=== PATIENT | female | born 1935 | race Caucasian/White ===

== ENCOUNTER 2016-07-21 05:59 | Emergency (ER) | payer MEDICARE ==
[2016-07-21] MEDS ORDERED: NS 0.9% 1000 ML* 1,000 ML IV ONE (06:13)
--- NOTE | 2016-07-21 06:29 | ED ---
Tobi Rosas Rebecca, scribed for Royce Villeda MD on 07/21/16 at 0621 . Complex/Multi-Sys Presentation - HPI Summary HPI Summary: Pt is an 81 y/o F who presents to ED c/o diarrhea. Diarrhea began suddenly 2 days ago and has been intermittent since onset. Sx aggravated by food, alleviated by nothing. Pt tried eating toast last night and at 0400 this morning she woke up, incontinent of stool. PMHx DM. Has not had insulin for 2 days due to decreased oral intake. Glucose has been running below 100. Called her PCP who stated, per pt, that sx are likely attributed to "the bug going around." - History Of Current Complaint Chief Complaint: EDNauseaVomitDiarrh Time Seen by Provider: 07/21/16 06:13 Hx Obtained From: Patient Onset/Duration: Sudden Onset, Lasting Days - 2 days Timing: Intermittent, Lasting: Severity Currently: None Aggravating Factor(s): Food Alleviating Factor(s): Nothing Associated Signs And Symptoms: Positive: Diarrhea, Other - Stool incontinent - Allergies/Home Medications Allergies/Adverse Reactions: Allergies Allergy/AdvReac Type Severity Reaction Status Date / Time Penicillins [PCN] Allergy Intermediate Airway Verified 03/09/16 14:26 Obstruction Sulfamethoxazole Allergy Intermediate Rash Verified 03/09/16 14:26 w/Trimethoprim [From Bactrim] Ciprofloxacin AdvReac Severe TENDON TEAR Verified 03/09/16 14:26 Omeprazole AdvReac Severe Abdominal Verified 03/09/16 14:26 Pain Quinapril [From Accupril] AdvReac Severe Coughing Verified 03/09/16 14:26 MACROLIDES Allergy Severe GI Uncoded 03/09/16 14:26 PMH/Surg Hx/FS Hx/Imm Hx Endocrine/Hematology History: Reports: Hx Diabetes Cardiovascular History: Reports: Hx Congenital Heart Disease, Hx Congestive Heart Failure - 2016, Hx Hypertension, Hx Pacemaker/ICD - BIVANTRICULATOR MAR 31 2016 Denies: Hx Atrial Fibrillation Respiratory History: Denies: Hx Asthma GI History: Reports: Hx Gastroesophageal Reflux Disease History: Reports: Hx Renal Disease - transplant Musculoskeletal History: Denies: Hx Osteoporosis Sensory History: Reports: Hx Cataracts Denies: Hx Hearing Aid Opthamlomology History: Reports: Hx Cataracts Psychiatric History: Denies: Hx Panic Disorder - Cancer History Cancer Type, Location and Year: SQUAMOUS CELL CA (REMOVED) - Surgical History Surgery Procedure, Year, and Place: HYSTERECTMY; LSP LAMINECTOMY; RIGHT RENAL TRANSPLANT; BILAT CATARACT SURGERY; SQUAMOUS CELL REMOVAL Hx Anesthesia Reactions: No Infectious Disease History: No Infectious Disease History: Denies: History Other Infectious Disease, Traveled Outside the [place] in Last 30 Days - Family History Known Family History: Positive: Cardiac Disease - CAD to sister Family History: no reported cardio vascular issues reported - Social History Alcohol Use: Occasionally Substance Use Type: Reports: None Hx Tobacco Use: Yes Smoking Status (MU): Former Smoker Type: Cigarettes Length of Time of Smoking/Using Tobacco: 15 years Have You Smoked in the Last Year: No Review of Systems Positive: Diarrhea Positive: incontinence - Stool All Other Systems Reviewed And Are Negative: Yes Physical Exam Triage Information Reviewed: Yes Vital Signs On Initial Exam: Initial Vitals Temp Pulse Resp BP Pulse Ox 97.2 F 83 18 161/76 96 07/21/16 06:06 07/21/16 06:06 07/21/16 06:06 07/21/16 06:06 07/21/16 06:06 Vital Signs Reviewed: Yes Appearance: Positive: No Pain Distress, Thin Skin: Positive: Warm Head/Face: Positive: Normal Head/Face Inspection Eyes: Positive: KENTRELL ENT: Positive: Hearing grossly normal Neck: Positive: Supple Respiratory/Lung Sounds: Positive: Clear to Auscultation, Breath Sounds Present Cardiovascular: Positive: RRR Abdomen Description: Positive: Nontender, Soft Bowel Sounds: Positive: Present Musculoskeletal: Positive: Strength/ROM Intact Neurological: Positive: Sensory/Motor Intact, Alert, Oriented to Person Place, Time Psychiatric: Positive: Normal Diagnostics - Vital Signs Vital Signs Temp Pulse Resp BP Pulse Ox 07/21/16 06:06 97.2 F 83 18 161/76 96 - Laboratory Result Diagrams: 07/21/16 06:35 07/21/16 06:35 Lab Statement: Any lab studies that have been ordered have been reviewed, and results considered in the medical decision making process. Complex Multi-Symp Course/Dx Assessment/Plan: Pt is an 81 y/o F with a CC of diarrhea intermittently for 2 days. At 0400 she woke up, incontinent of stool. Pt will be signed out to Dr. Delgado. - Diagnoses Provider Diagnoses: Gastroenteritis Discharge - Discharge Plan Condition: Good Disposition: HOME Discharge Disposition Comment: Signed out to Dr. Delgado, pending dispo Patient Education Materials: Gastroenteritis (ED) Referrals: Anselmo Smith MD [Primary Care Provider] - 2 Days The documentation as recorded by the Tobi mckeon Rebecca accurately reflects the service I personally performed and the decisions made by me, Royce Villeda MD.
[2016-07-21 06:52] LABS: Hematocrit 42 % (35-47); Hemoglobin 13.7 g/dl (12.0-16.0); Mean Corpuscular HGB Conc 33 g/dl (31-36); Mean Corpuscular Hemoglobin 30 pg (27-31); Mean Corpuscular Volume 92 fL (80-97); Mean Platelet Volume 10 um3 (7.4-10.4); Red Blood Count 4.57 10^6/ul (4.0-5.4); Red Cell Distribution Width 17 % (10.5-15); White Blood Count 3.4 10^3/ul (3.5-10.8)
[2016-07-21 07:03] LABS: Comments Flag Yes
[2016-07-21 07:04] LABS: Add Diff/Slide Review? Slide Review Added
[2016-07-21 07:24] LABS: ALT 21 U/L (7-52); AST 38 U/L (13-39); Albumin 3.7 g/dL (3.2-5.2); Alkaline Phosphatase 62 U/L (34-104); Anion Gap 6 mmol/L (2-11); BUN/Creatinine Ratio 22.1 (8-20); Blood Urea Nitrogen 21 mg/dL (6-24); C Reactive Protein < 1.00 mg/L (< 5.00); CO2 Carbon Dioxide 26 mmol/L (22-32); Chloride 105 mmol/L (101-111); EGFR African American 72.4 (>60); EGFR Non-African American 56.3 (>60); Globulin 3.5 g/dL (2-4); Glucose 124 mg/dL (70-100); Magnesium 1.9 mg/dL (1.9-2.7); Potassium 3.8 mmol/L (3.5-5.0); Sodium 137 mmol/L (133-145); Total Protein 7.2 g/dL (6.4-8.9)
[2016-07-21 12:42] VITALS: BP 145/84
[2016-07-21] MEDS ORDERED: Loperamide CAP* 2 MG ONE ×2 (12:46→12:50)
--- NOTE | 2016-07-21 12:58 | CONSULT ---
Consult Consult: Ms Borjas presented to the ED C/O a few days of watery diarrhea. She was concerned because yesterday it seemed to be andrenia away and this AM it was back.. She was on an antibiotic in June for bronchitis. Her stool was negative for blood, WBC's and C.Diff. and She felt better after some IV fluids. I will treat her symptomatically as an outpatient and discharge her in stable condition with a diagnosos of diarrhea.
[2016-07-21] MEDS ORDERED: Loperamide CAP* 2 MG PO ONE (13:01)
== END 2016-07-21 12:40 | disposition home or self-care (01) ==
LOC: ED 05:59
DX: K52.9 Noninfective gastroenteritis and colitis, unspecified (principal); R19.7 Diarrhea, unspecified; Z87.891 Personal history of nicotine dependence
CPT/HCPCS: 36415; 80053; 82272; 83630; 83735; 85025; 86140; 87045; 87046; 87493; 87899; 99282; A9270-GY

== ENCOUNTER 2016-08-22 13:24 | Emergency (ER) | payer MEDICARE ==
[2016-08-22] MEDS ORDERED: Aspirin Low Dose CHEW TAB* 81 MG PO ONE (14:17)
[2016-08-22 14:46] LABS: Hematocrit 39 % (35-47); Hemoglobin 12.7 g/dl (12.0-16.0); Mean Corpuscular HGB Conc 33 g/dl (31-36); Mean Corpuscular Hemoglobin 30 pg (27-31); Mean Corpuscular Volume 91 fL (80-97); Mean Platelet Volume 9 um3 (7.4-10.4); Red Blood Count 4.25 10^6/ul (4.0-5.4); Red Cell Distribution Width 16 % (10.5-15); White Blood Count 7.5 10^3/ul (3.5-10.8)
[2016-08-22 15:04] LABS: Albumin 3.7 g/dL (3.2-5.2); BUN/Creatinine Ratio 26.3 (8-20); Calcium 9.5 mg/dL (8.6-10.3); EGFR African American 69.1 (>60); EGFR Non-African American 53.7 (>60); Globulin 3.4 g/dL (2-4); Potassium 4.1 mmol/L (3.5-5.0); Total Bilirubin 0.9 mg/dL (0.2-1.0); Total Protein 7.1 g/dL (6.4-8.9)
[2016-08-22 15:32] LABS: Troponin I 0.04 ng/mL (<0.04)
--- NOTE | 2016-08-22 15:50 | RAD ---
Indication: Chest pain. Single frontal view of the chest performed at 1439 hours was reviewed. Comparison is made with previous exam dated March 09, 2016. Cardiomegaly is noted. There is an enlarged right atrium noted. Pacemaker leads are in place. Lung gilman appear hyperinflated with no definite pneumonia. IMPRESSION: CARDIAC PACEMAKER WITH ENLARGED RIGHT ATRIUM. NO ACTIVE CARDIOPULMONARY DISEASE IS NOTED.
[2016-08-22] MEDS ORDERED: Iodixanol* (CONTRAST) 320 MG/ML 100 ML SDV IV ONE (17:09)
--- NOTE | 2016-08-22 18:07 | RAD ---
Indication: Positive d-dimer, shortness of breath. Contrast: Administered 64.1 ml of VISAPAQUE 320 mgi/ml CTA of the chest was performed on IV contrast administration. Coronal and sagittal reconstructed images were obtained. The pulmonary arterial tree is well opacified. There are no filling defects to suggest pulmonary embolus. There is no mediastinal or hilar adenopathy noted. The heart is enlarged. There may be a small pericardial effusion. The trachea and major bronchi appear patent. Bilateral pleural effusions. Interstitial edema consistent with CHF is noted. The visualized abdominal organs demonstrates atrophic kidneys bilaterally. Atherosclerosis of the splenic artery is noted. IMPRESSION: NO EVIDENCE OF PULMONARY EMBOLUS IS NOTED. CARDIOMEGALY WITH SMALL PERICARDIAL EFFUSION IS NOTED. BILATERAL PLEURAL EFFUSIONS WITH LIKELY VASCULAR CONGESTION.
[2016-08-22 18:48] VITALS: BP 138/72
--- NOTE | 2016-08-23 09:33 | ED ---
Leanne Rosas Michael, scribed for Rolando Delgado MD on 08/22/16 at 1412 . HPI Chest Pain - HPI Summary HPI Summary: 81 y/o female comes to the ED presenting with sharp chest pain located in the mid sternal. The chest pain started one day ago. The pt reports that the chest pain started intermittently and worsened this morning. Throughout the day the pain occurred in intermittent episodes, and upon exertion, the sharp pain became constant. Currently at the ED, the pt states the chest pain is slightly alleviated with laying down and the . While laying down, the chest pain is still present, but it is described as pressure. The pt denies all other symptoms. The PMHx is significant for AL. - History of Current Complaint Chief Complaint: EDChestPainROMI Time Seen by Provider: 08/22/16 13:58 Hx Obtained From: Patient, Medical Records Onset/Duration: Started Days Ago, Still Present, Worse Since - this morning Timing: Constant, Intermittent Initial Severity: Moderate Current Severity: Mild Pain Intensity: 3 Pain Scale Used: 0-10 Numeric Chest Pain Location: Mid Sternal Chest Pain Radiates: No Character: Pressure/Squeezing, Sharp/Stabbing Aggravating Factor(s): Exertion Alleviating Factor(s): Position - laying down Associated Signs and Symptoms: Positive: Chest Pain - Allergy/Home Medications Allergies/Adverse Reactions: Allergies Allergy/AdvReac Type Severity Reaction Status Date / Time Penicillins [PCN] Allergy Intermediate Airway Verified 08/23/16 08:17 Obstruction Sulfamethoxazole Allergy Intermediate Rash Verified 08/22/16 13:27 w/Trimethoprim [From Bactrim] Ciprofloxacin AdvReac Severe TENDON TEAR Verified 08/22/16 13:27 Omeprazole AdvReac Severe Abdominal Verified 08/22/16 13:27 Pain Quinapril [From Accupril] AdvReac Severe Coughing Verified 08/22/16 13:27 MACROLIDES Allergy Severe GI Uncoded 08/22/16 13:27 PMH/Surg Hx/FS Hx/Imm Hx Endocrine/Hematology History: Reports: Hx Diabetes Cardiovascular History: Reports: Hx Congenital Heart Disease, Hx Congestive Heart Failure - 2016, Hx Hypertension, Hx Myocardial Infarction, Hx Pacemaker/ ICD - BIVANTRICULATOR MAR 31 2016 Denies: Hx Atrial Fibrillation Respiratory History: Denies: Hx Asthma GI History: Reports: Hx Gastroesophageal Reflux Disease History: Reports: Hx Renal Disease - transplant Musculoskeletal History: Denies: Hx Osteoporosis Sensory History: Reports: Hx Cataracts Denies: Hx Hearing Aid Opthamlomology History: Reports: Hx Cataracts Psychiatric History: Denies: Hx Panic Disorder - Cancer History Cancer Type, Location and Year: SQUAMOUS CELL CA (REMOVED) - Surgical History Surgery Procedure, Year, and Place: HYSTERECTMY; LSP LAMINECTOMY; RIGHT RENAL TRANSPLANT; BILAT CATARACT SURGERY; SQUAMOUS CELL REMOVAL Hx Anesthesia Reactions: No Infectious Disease History: No Infectious Disease History: Denies: History Other Infectious Disease, Traveled Outside the [place] in Last 30 Days - Family History Known Family History: Positive: Cardiac Disease - CAD to sister Family History: no reported cardio vascular issues reported - Social History Occupation: Retired Lives: With Family Alcohol Use: Occasionally Substance Use Type: Reports: None Hx Tobacco Use: Yes Smoking Status (MU): Former Smoker Type: Cigarettes Length of Time of Smoking/Using Tobacco: 15 years Have You Smoked in the Last Year: No Review of Systems Negative: Fever Positive: Chest Pain All Other Systems Reviewed And Are Negative: Yes Physical Exam Triage Information Reviewed: Yes Vital Signs On Initial Exam: Initial Vitals Temp Pulse Resp BP Pulse Ox 96.5 F 87 18 157/84 93 08/22/16 13:27 08/22/16 13:27 08/22/16 13:27 08/22/16 13:27 08/22/16 13:27 Vital Signs Reviewed: Yes Appearance: Positive: Well-Appearing, No Pain Distress, Well-Nourished Skin: Positive: Warm, Skin Color Reflects Adequate Perfusion, Dry Head/Face: Positive: Normal Head/Face Inspection Eyes: Positive: Normal ENT: Positive: Normal ENT inspection Neck: Positive: Supple, Nontender Respiratory/Lung Sounds: Positive: Clear to Auscultation, Breath Sounds Present Cardiovascular: Positive: RRR, S1 - split Abdomen Description: Positive: Nontender, Soft Bowel Sounds: Positive: Present Musculoskeletal: Positive: Normal Neurological: Positive: Normal Psychiatric: Positive: Affect/Mood Appropriate Diagnostics - Vital Signs Vital Signs Temp Pulse Resp BP Pulse Ox 08/22/16 13:27 96.5 F 87 18 157/84 93 - Laboratory Lab Results: Lab Results 08/22/16 08/22/16 08/22/16 Range/Units 14:30 14:30 14:30 WBC 7.5 (3.5-10.8) 10^3/ul RBC 4.25 (4.0-5.4) 10^6/ul Hgb 12.7 (12.0-16.0) g/dl Hct 39 (35-47) % MCV 91 (80-97) fL MCH 30 (27-31) pg MCHC 33 (31-36) g/dl RDW 16 H (10.5-15) % Plt Count 153 (150-450) 10^3/ul MPV 9 (7.4-10.4) um3 Neut % (Auto) 78.4 (38-83) % Lymph % (Auto) 12.5 L (25-47) % [place] % (Auto) 7.1 (1-9) % Eos % (Auto) 1.2 (0-6) % Baso % (Auto) 0.8 (0-2) % Absolute Neuts (auto) 5.9 (1.5-7.7) 10^3/ul Absolute Lymphs (auto) 0.9 L (1.0-4.8) 10^3/ul Absolute Monos (auto) 0.5 (0-0.8) 10^3/ul Absolute Eos (auto) 0.1 (0-0.6) 10^3/ul Absolute Basos (auto) 0.1 (0-0.2) 10^3/ul Absolute Nucleated RBC 0 10^3/ul Nucleated RBC % 0 D-Dimer, Quantitative (Less Than 230) ng/mL Sodium 138 (133-145) mmol/L Potassium 4.1 (3.5-5.0) mmol/L Chloride 100 L (101-111) mmol/L Carbon Dioxide 30 (22-32) mmol/L Anion Gap 8 (2-11) mmol/L BUN 26 H (6-24) mg/dL Creatinine 0.99 H (0.51-0.95) mg/dL Est GFR ( Amer) 69.1 (>60) Est GFR (Non-Af Amer) 53.7 (>60) BUN/Creatinine Ratio 26.3 H (8-20) Glucose 225 H (70-100) mg/dL Lactic Acid 0.9 (0.5-2.0) mmol/L Calcium 9.5 (8.6-10.3) mg/dL Total Bilirubin 0.90 (0.2-1.0) mg/dL AST 56 H (13-39) U/L ALT 23 (7-52) U/L Alkaline Phosphatase 71 (34-104) U/L Troponin I 0.04 H* (<0.04) ng/mL Total Protein 7.1 (6.4-8.9) g/dL Albumin 3.7 (3.2-5.2) g/dL Globulin 3.4 (2-4) g/dL Albumin/Globulin Ratio 1.1 (1-3) 08/22/16 08/22/16 Range/Units 14:30 17:20 WBC (3.5-10.8) 10^3/ul RBC (4.0-5.4) 10^6/ul Hgb (12.0-16.0) g/dl Hct (35-47) % MCV (80-97) fL MCH (27-31) pg MCHC (31-36) g/dl RDW (10.5-15) % Plt Count (150-450) 10^3/ul MPV (7.4-10.4) um3 Neut % (Auto) (38-83) % Lymph % (Auto) (25-47) % [place] % (Auto) (1-9) % Eos % (Auto) (0-6) % Baso % (Auto) (0-2) % Absolute Neuts (auto) (1.5-7.7) 10^3/ul Absolute Lymphs (auto) (1.0-4.8) 10^3/ul Absolute Monos (auto) (0-0.8) 10^3/ul Absolute Eos (auto) (0-0.6) 10^3/ul Absolute Basos (auto) (0-0.2) 10^3/ul Absolute Nucleated RBC 10^3/ul Nucleated RBC % D-Dimer, Quantitative 853 H (Less Than 230) ng/mL Sodium (133-145) mmol/L Potassium (3.5-5.0) mmol/L Chloride (101-111) mmol/L Carbon Dioxide (22-32) mmol/L Anion Gap (2-11) mmol/L BUN (6-24) mg/dL Creatinine (0.51-0.95) mg/dL Est GFR ( Amer) (>60) Est GFR (Non-Af Amer) (>60) BUN/Creatinine Ratio (8-20) Glucose (70-100) mg/dL Lactic Acid (0.5-2.0) mmol/L Calcium (8.6-10.3) mg/dL Total Bilirubin (0.2-1.0) mg/dL AST (13-39) U/L ALT (7-52) U/L Alkaline Phosphatase (34-104) U/L Troponin I 0.05 H* (<0.04) ng/mL Total Protein (6.4-8.9) g/dL Albumin (3.2-5.2) g/dL Globulin (2-4) g/dL Albumin/Globulin Ratio (1-3) Result Diagrams: 08/22/16 14:30 08/22/16 14:30 Lab Statement: Any lab studies that have been ordered have been reviewed, and results considered in the medical decision making process. - Radiology CXR Xray Interpretation: Positive (See Comments) - CARDIAC PACEMAKER WITH ENLARGED RIGHT ATRIUM. NO ACTIVE CARDIOPULMONARY DISEASE IS NOTED. Radiology Interpretation Completed By: Radiologist - CT CTA Chest CT Interpretation: Positive (See Comments) - NO EVIDENCE OF PULMONARY EMBOLUS IS NOTED. CARDIOMEGALY WITH SMALL PERICARDIAL EFFUSION IS NOTED. BILATERAL PLEURAL EFFUSIONS WITH LIKELY VASCULAR CONGESTION. CT Interpretation Completed By: Radiologist - EKG EK EKG Rhythm: Sinus Rhythm - 87 bpm EKG Interpretation: introlateral st wave changes EKG Comparison: No Significant Change - from EKG on 04/24/12 Chest Pain Course/Dx - Course Course Of Treatment: Ms. Borjas has an atypical pain and significant risk factors. Her EDACS score was 12 - 18 as the pain was intermittently reproducible (she has difficulty with direct answers). She had two troponins thet were low indeterminant which is what she normally runs. Her d-dimer was quite elevated and a CT showed no PE. I recommended close F/U. - Diagnoses Provider Diagnoses: Chest wall pain Discharge - Discharge Plan Condition: Stable Disposition: HOME Patient Education Materials: Chest Wall Pain (ED) Referrals: Anselmo Smith MD [Primary Care Provider] - Additional Instructions: Please follow up with Dr. Smith on Sal 3/20/17. The documentation as recorded by the scribeLeanne Michael accurately reflects the service I personally performed and the decisions made by me, Rolando Delgado MD.
== END 2016-08-22 18:47 | disposition home or self-care (01) ==
LOC: ED 13:24
DX: R07.89 Other chest pain (principal); Z87.891 Personal history of nicotine dependence
CPT/HCPCS: 36415; 71010; 71275; 80053; 83605; 84484; 85025; 85379; 93005; 99283; Q9967

== ENCOUNTER 2016-09-14 10:24 | Emergency (ER) | payer MEDICARE ==
[2016-09-14 11:24] VITALS: BP 136/67
--- NOTE | 2016-09-14 12:38 | UC ---
Respiratory Complaint HPI - HPI Summary HPI Summary: Cough, elevated temperature ("my normal is 97.2, and I take it every day because of the transplant, and this week it has been as high as 99"), mucus production, fatigue starting about a week ago. Was rx [id number] in late august due to achiness and feeling of fullness behind her ears and into her neck, but wasn' t coughing or blowing nose at that time. - History of Current Complaint Chief Complaint: UCGeneralIllness Stated Complaint: COUGH, CHEST CONGEST Time Seen by Provider: 09/14/16 12:12 Hx Obtained From: Patient ?: No Onset/Duration: Gradual Onset, Lasting Days Timing: Constant Severity Initially: Mild Severity Currently: Moderate Character: Cough: Productive Aggravating Factors: Deep Breaths, Recumbent Position Alleviating Factors: Upright Position Associated Signs And Symptoms: Positive: Chills, URI, Nasal Congestion. Negative: Wheezing - Allergies/Home Medications Allergies/Adverse Reactions: Allergies Allergy/AdvReac Type Severity Reaction Status Date / Time Penicillins [PCN] Allergy Intermediate Airway Verified 08/23/16 08:17 Obstruction Sulfamethoxazole Allergy Intermediate Rash Verified 08/22/16 13:27 w/Trimethoprim [From Bactrim] Ciprofloxacin AdvReac Severe TENDON TEAR Verified 08/22/16 13:27 Omeprazole AdvReac Severe Abdominal Verified 08/22/16 13:27 Pain Quinapril [From Accupril] AdvReac Severe Coughing Verified 08/22/16 13:27 MACROLIDES Allergy Severe GI Uncoded 08/22/16 13:27 Home Medications: Home Medications Muir's Brand Tussin 0.5 teasp 09/14/16 [History] PMH/Surg Hx/FS Hx/Imm Hx Endocrine History Of: Reports: Diabetes Cardiovascular History Of: Reports: Cardiac Disorders - HEART FAILURE, Hypertension, Pacemaker/ICD - BIVANTRICULATOR MAR 31 2016, Myocardial Infarction , Congestive Heart Failure - 2016 Respiratory History Of: Reports: Bronchitis Denies: Asthma GI/ History Of: Reports: Renal Disease - transplant Cancer History Of: Denies: Breast Cancer - Surgical History Surgical History: Yes Surgery Procedure, Year, and Place: HYSTERECTMY; LSP LAMINECTOMY; RIGHT RENAL TRANSPLANT; BILAT CATARACT SURGERY; SQUAMOUS CELL REMOVAL - Family History Known Family History: Positive: Cardiac Disease - CAD to sister Family History: no reported cardio vascular issues reported - Social History Alcohol Use: Occasionally Substance Use Type: None Smoking Status (MU): Former Smoker Type: Cigarettes Length of Time of Smoking/Using Tobacco: 15 years Have You Smoked in the Last Year: No Review of Systems Constitutional: Fever, Chills, Fatigue Skin: Negative Eyes: Negative ENT: Nasal Discharge Respiratory: Cough Cardiovascular: Negative Gastrointestinal: Negative Genitourinary: Negative Motor: Negative Neurovascular: Negative Musculoskeletal: Negative Neurological: Negative Psychological: Negative All Other Systems Reviewed And Are Negative: Yes Physical Exam Triage Information Reviewed: Yes Appearance: Well-Appearing, No Pain Distress, Well-Nourished Vital Signs: Initial Vital Signs Temp 100.3 F 09/14/16 11:17 Pulse 83 09/14/16 11:17 Resp 18 09/14/16 11:17 BP 136/67 09/14/16 11:17 Pulse Ox 100 09/14/16 11:17 Vital Signs Reviewed: Yes Eye Exam: Normal Eyes: Positive: Conjunctiva Clear ENT: Positive: Hearing grossly normal, Pharynx normal, Nasal congestion, TMs normal. Negative: Tonsillar swelling, Tonsillar exudate Neck exam: Normal Neck: Positive: Supple, Nontender, No Lymphadenopathy Respiratory Exam: Other - frequent productive cough Respiratory: Positive: No respiratory distress, Rhonchi - clear with cough. Negative: Wheezing Cardiovascular Exam: Normal Cardiovascular: Positive: RRR, No Murmur Musculoskeletal Exam: Normal Musculoskeletal: Positive: ROM Intact Neurological Exam: Normal Neurological: Positive: Alert, Muscle Tone Normal Psychological Exam: Normal Skin Exam: Normal UC Diagnostic Evaluation - Laboratory O2 Sat by Pulse Oximetry: 100 Respiratory Course/Dx - Course Course Of Treatment: flu swab negative, CXR read as no acute changes - Differential Dx/Diagnosis Provider Diagnoses: acute bronchitis Discharge - Discharge Plan Condition: Stable Disposition: HOME Prescriptions: DOXYcycline CAP(*) [DOXYcycline 100MG CAP(*)] 100 mg PO BID #14 cap Patient Education Materials: Acute Bronchitis (ED) Referrals: Anselmo Smith MD [Primary Care Provider] - 3 Days Additional Instructions: As we discussed, this antibiotic is mainly intended to prevent bacterial complications. As it is very likely that your symptoms are caused by a virus, you will probably continue to have a productive cough for at least another week or two. Call or return if you develop increasing fever, shortness of breath, chest pain , bloody sputum, or otherwise worsen. If you have not improved at all after several days, contact your primary care physician or return here.
--- NOTE | 2016-09-14 13:01 | RAD ---
INDICATION: Cough, fever. Kidney transplant. History of CHF. COMPARISON: August 22, 2016 CT. TECHNIQUE: Dual energy PA and routine lateral views of the chest were obtained. REPORT: LEFT larger than RIGHT small dependent pleural effusions with associated basilar atelectasis. Negative for pneumothorax. Cardiomegaly. RIGHT atrial, RIGHT ventricular, and coronary sinus level pacemaker leads. Pacemaker device partially obscures the LEFT mid to upper lung zone on the PA view. Unremarkable central pulmonary vasculature and mediastinal contours. IMPRESSION: Cardiomegaly and small pleural effusions. No compelling evidence for alveolar or interstitial pulmonary edema. Mild bibasilar atelectasis proportional to the pleural effusions. No compelling evidence for pneumonia.
== END 2016-09-14 13:25 | disposition home or self-care (01) ==
LOC: UCEAST 10:24
DX: J20.9 Acute bronchitis, unspecified (principal); E11.9 Type 2 diabetes mellitus without complications; I10 Essential (primary) hypertension; I25.2 Old myocardial infarction; Z95.0 Presence of cardiac pacemaker; I50.9 Heart failure, unspecified; Z88.1 Allergy status to other antibiotic agents; Z88.0 Allergy status to penicillin; Z88.2 Allergy status to sulfonamides; Z88.8 Allergy status to other drugs, medicaments and biological substances; Z94.0 Kidney transplant status
CPT/HCPCS: 71020; 87502; 99212; G0463

== ENCOUNTER 2017-07-14 16:56 | Emergency (ER) | payer MEDICARE ==
--- OUTSIDE RECORDS SUMMARY | 2017-07-14 17:10 | XMS REPORT ---
:1935 External Reference #:[id number] Author Organization [facility] Address [address] [place] [address] Phone [phone] Care Team Providers Name Role Phone Anselmo Smith M.D. Primary Care Physician Unavailable Payers Type Date Identification Numbers Payment Provider Subscriber Commercial Policy Number: [id number] BS [employer] Taina Bhargavi [employer] Group Number: [id number] [address] [address] PayID: [id number] [place] [address] Problems Date Description Provider Status Onset: Type 1 diabetes mellitus Active Onset: Essential hypertension Active Onset: Arthritis Active Onset: 10/24/2014 Corneal edema Christie Henry O.D. Active Onset: 10/24/2014 Band-shaped keratopathy Christie Henry O.D. Active Onset: 10/24/2014 Ocular hypertension Christie Henry O.D. Active Onset: 06/26/2015 Vitreous degeneration Christie Henry O.D. Active Onset: 06/26/2015 Presence of intraocular lens Christie Henry O.D. Active Onset: 06/26/2015 Hypermetropia Christie Henry O.D. Active Onset: 06/26/2015 Regular astigmatism Christie Henry O.D. Active Onset: 06/26/2015 Myopia Christie Henry O.D. Active Onset: 06/26/2015 Presbyopia Christie Henry O.D. Active Onset: 01/01/2016 Round hole of retina without Christie Vini Henry O.D. Active detachment Onset: Heart failure Active Onset: Decreased cardiac ejection fraction Active Onset: 03/16/2016 Vitreous hemorrhage Christie Cordero O.D. Active Onset: Congestive heart failure Active Onset: 05/27/2017 Glaucoma Christie Cordero O.D. Active Onset: 06/02/2017 Hemorrhage of iris AND/OR ciliary body Christie Cordero O.D. 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 every day Refresh Liquigel 10/23 Active Solution 1% 1 drop both C. Oltz, eyes as O.D. needed Avi 128 10/23 Active Ointment 5% Dorota - both C. Oltz, eyes O.D. every night Prednisone Active Tablets 2.5mg Unknown 0000 Azathioprine Active Tablets 50mg Unknown /0000 Humalog Active Solution 100Unit/M Unknown /0000 L Lantus Active Solution 100Unit/M Unknown /0000 L Vitamin D Active Capsules 1000Unit 1 tab Unknown (Cholecalciferol) po daily Centrum Silver Active Chewtabs Unknown /0000 Lasix Active Tablets 20mg Unknown /0000 Avi 128 Active Solution 5% 15ml Drops - Rey 1 drop Zablocki, both M.D. eyes twice daily Azithromycin Active Tablets 250mg Unknown Simbrinza 06/01 Hx Suspension 1-0.2% 1 drop left - eye 3 06/28 times day Tobradex 02/28 Hx Ointment 0.3-0.1% 3.500 place H18.423 gm 0.5 Vini Henry, - inch O.D. 04/13 in left eye at night for 2 weeks Aspirin Low Dose 06/25 Hx Tablets 81mg 1 by mouth Vini Henry, - every O.D. 02/27 day Prednisolone Acetate 10/23 Hx Suspension 1% 90 1 both eyes Vini Henry, - every O.D. Avi 128 10/23 Hx Solution 5% both eyes Vini Henry, - four O.D. 11/04 times day Hydrochlorothiazide 00/00 Hx Capsules 12.5mg Unknown /06/17 Ramipril 00/00 Hx Capsules 10mg Unknown / - 11/04 Fish Oil-Flax Hx Capsules Unknown Oil-Borage Oil /02/27 Centrum Silver 00/00 Hx Chewtabs Unknown / - 06/25 Vitamin D3 00/00 Hx Capsules 1000Unit Unknown 06/25 Lasix 00/00 Hx Tablets 20mg every Unknown / other - day 12/01 Metoprolol Succinate 00/00 Hx Tablets ER 1/2 Of Unknown ER /0000 24HR 25mg - 11/04 Zantac 00/00 Hx Tablets 150mg Unknown / - 11/04 Torsemide 00/00 Hx Tablets 10mg Unknown / - 02/27 Lisinopril 00/00 Hx Tablets 10mg Unknown / - 02/27 Carvedilol 00/00 Hx Tablets 3.125mg Unknown / - 02/27 Aspirin 00/[address] 81mg every Unknown /0000 other - day 08/05 Furosemide 00/00 Hx Tablets 20mg Unknown / - 08/05 Valsartan 00/00 Hx Tablets 80mg Unknown / - 04/13 Metoprolol Succinate 00/00 Hx Tablets ER 25mg Unknown ER /0000 24HR - 08/05 Lasix Hx Tablets 20mg 1 tab Unknown /0000 po - daily 06/01 Ramipril Hx Capsules 5mg 1 tab Unknown /0000 po - daily 05/26 Acetazolamide Hx Tablets 125mg 1 Unknown /0000 tablet - twice 06/16 Results Description No Information Procedures Date CPT Code Description Status 06/02/2017 46807 Est Patient Intermediate Exam Completed 04/27/2017 92728 Determination Of Refractive State Completed 02/03/2017 86773 Est Patient Comprehensive Exam Completed 11/10/2016 00923 Est Patient Intermediate Exam Completed 08/21/2016 07970 Determination Of Refractive State Completed 08/21/2016 84726 Est Patient Intermediate Exam Completed 02/29/2016 50571 Est Patient Intermediate Exam Completed 01/01/2016 06921 Est Patient Intermediate Exam Completed 11/06/2015 11481 Est Patient Intermediate Exam Completed 06/26/2015 13249 Determination Of Refractive State Completed 06/26/2015 63791 Est Patient Comprehensive Exam Completed 10/24/2014 52360 Pachymetry Completed 10/24/2014 82031 Est Patient Intermediate Exam Completed 06/26/2014 38420 Scanning Computerized Opthalmic Diagnostic Posterior Completed Seg Retina 06/26/2014 08012 Est Patient Comprehensive Exam Completed 05/21/2014 80855 Est Patient Intermediate Exam Completed 03/21/2014 02549 Est Patient Intermediate Exam Completed 10/25/2013 56886 Est Patient Intermediate Exam Completed 10/18/2013 86841 Contact Lens For Treatment Of Ocular Surface Disease Completed 10/18/2013 19869 Est Patient Intermediate Exam Completed 10/04/2013 53452 Est Patient Intermediate Exam Completed 06/27/2013 77461 Est Patient Comprehensive Exam Completed 12/26/2012 73004 Est Patient Comprehensive Exam Completed 12/26/2012 56480 Scanning Computerized Opthalmic Diagnostic Posterior Completed Seg Retina 11/29/2012 18924 Determination Of Refractive State Completed 10/14/2012 36019 Est Patient Intermediate Exam Completed 09/13/2012 64035 Est Patient Intermediate Exam Completed 06/23/2012 13490 Fundus Photography With Interpretation And Report Completed 06/23/2012 15680 Est Patient Intermediate Exam Completed 06/23/2012 525 Dry Eye Therapy Kits Completed 05/25/2012 525 Recheck Completed 12/22/2011 67102 Scanning Computerized Opthalmic Diagnostic Posterior Completed Seg Retina 12/22/2011 45770 Determination Of Refractive State Completed 12/22/2011 90845 Est Patient Comprehensive Exam Completed 06/23/2011 87113 Est Patient Intermediate Exam Completed 06/23/2011 15361 Determination Of Refractive State Completed 05/20/2011 38669 Remove Foreign Body Cornea W/Slit Lamp Completed 12/18/2010 87495 Est Patient Intermediate Exam Completed 12/18/2010 516 Cod Liver Oil Tablets Completed 08/14/2010 02009 Est Patient Intermediate Exam Completed 06/19/2010 86789 Scanning Computerized Opthalmic Diagnostic Posterior Completed Seg Retina 06/19/2010 82665 Est Patient Intermediate Exam Completed 01/21/2010 11312 Determination Of Refractive State Completed 01/21/2010 52728 Est Patient Comprehensive Exam Completed 10/24/2009 78140 Est Patient Intermediate Exam Completed 09/24/2009 77850 Est Patient Intermediate Exam Completed 09/24/2009 99837 Scanning Laser W/Interp And Report Completed 03/26/2009 52388 Scanning Laser W/Interp And Report Completed 03/26/2009 45894 Determination Of Refractive State Completed 03/26/2009 84735 Est Patient Comprehensive Exam Completed 12/15/2008 56276 Est Patient Intermediate Exam Completed 09/18/2008 04392 Est Patient Intermediate Exam Completed 05/21/2008 31981 Recheck Completed 03/19/2008 68646 Scanning Laser W/Interp And Report Completed 03/19/2008 09206 Determination Of Refractive State Completed 03/19/2008 10151 Est Patient Comprehensive Exam Completed 09/14/2007 516 Cod Liver Oil Tablets Completed 09/14/2007 38023 Est Patient Intermediate Exam Completed 09/14/2007 34484 Fundus Photography With Interpretation And Report Completed 03/15/2007 27068 Scanning Laser W/Interp And Report Completed 03/15/2007 54091 Est Patient Intermediate Exam Completed 01/31/2007 92527 Est Patient Intermediate Exam Completed 01/07/2007 50449 Est Patient Intermediate Exam Completed 08/20/2006 21459 Determination Of Refractive State Completed 08/20/2006 77332 Est Patient Comprehensive Exam Completed 06/18/2006 87126 Est Patient Intermediate Exam Completed 11/09/2005 16793 Est Patient Intermediate Exam Completed 04/20/2005 76463 Est Patient Intermediate Exam Completed 04/17/2005 46588 Rescheduled Appointment Completed 04/02/2005 96516 Determination Of Refractive State Completed 04/02/2005 09961 Est Patient Comprehensive Exam Completed 12/25/2004 38694 Rescheduled Appointment Completed 12/19/2004 17332 Rescheduled Appointment Completed 09/16/2004 13798 Est Patient Intermediate Exam Completed 06/20/2004 87482 Fundus Photography With Interpretation And Report Completed 06/20/2004 69842 Est Patient Comprehensive Exam Completed 05/23/2004 87188 Est Patient Intermediate Exam Completed 05/13/2004 03416 Close Lacrimal Punctum, Plug Completed 05/09/2004 01938 Est Patient Intermediate Exam Completed 05/05/2004 75258 Close Lacrimal Punctum, Plug Completed 05/05/2004 69200 Est Patient Intermediate Exam Completed 04/16/2004 06612 Est Patient Comprehensive Exam Completed 04/16/2004 36001 Close Lacrimal Punctum, Plug Completed 11/06/2003 42754 Fundus Photography With Interpretation And Report Completed 11/06/2003 81749 Est Patient Intermediate Exam Completed 10/25/2003 90836 Patient No Show For Appt Completed 10/24/2003 86565 Rescheduled Appointment Completed 10/09/2003 42300 Est Patient Intermediate Exam Completed 10/02/2003 07454 Patient No Show For Appt Completed 09/24/2003 32215 Est Patient Intermediate Exam Completed Encounters Type Date Location Provider CPT E/M Dx Office Visit 06/17/2017 2:45p Yadiel Olea MD, Rey Barrow, 26098 H21.02 [place] H40.052 Office Visit 06/15/2017 2:30p Yadiel Olea MD, Rey Barrow M.D. 09456 H21.02 pc H40.052 H18.20 Office Visit 05/27/2017 1:15p Yadiel Olea MD, Christie Cordero O.D. 08574 H40.89 pc Office Visit 04/14/2016 10:15a Yadiel Olea MD, Christie Cordero O.D. 07365 H18.423 pc Office Visit 03/16/2016 2:45p Yadiel Olea MD, Christie Cordero O.D. 51932 H43.11 pc H18.423 Office Visit 02/21/2014 2:00p Yadiel Olea MD, Dena Aguilera.Iris 04853 371.20 pc Office Visit 12/26/2013 10:15a Yadiel Olea MD, Dena Aguilera.DJimmy 95270 371.20 pc 371.43 Office Visit 11/15/2013 1:45p Yadiel Olea MD, Dena Aguilera.DJimmy 94818 371.20 pc Office Visit 11/29/2012 10:00a Yadiel Olea MD, Dena Aguilera.Iris 34437 371.43 pc Office Visit 10/29/2012 10:45a Yadiel Olea MD, Dena Aguilera.Iris 56559 371.43 pc Office Visit 10/21/2012 2:30p Yadiel Olea MD, Dena Aguilera.Iris 33430 371.43 pc Office Visit 05/22/2011 2:20p Yadiel Olea MD, Lakeisha Sellers, 42143 375.15 pc O.D. Office Visit 10/23/2010 11:15a Yadiel Olea MD, Dena Aguilera.Iris 29117 370.20 pc Office Visit 10/01/2010 9:30a Yadiel Olea MD, Dena Aguilera.Iris 78918 371.42 pc Office Visit 09/27/2010 9:15a Yadiel Olea MD, Dena Aguilera.Iris 86241 371.42 pc Office Visit 09/26/2010 10:15a Yadiel Olea MD, Dena Aguilera.DJimmy 57697 371.42 pc Office Visit 09/24/2010 10:00a Yadiel Olea MD, Dena Aguilera.Iris 42639 371.42 pc Office Visit 08/20/2010 9:30a Yadiel Olea MD, Dena Aguilera.Iris 81772 370.20 pc Office Visit 04/20/2009 10:15a Yadiel Olea MD, Rolando Correa Bridget 25877 375.15 pc O.D. Office Visit 02/07/2009 3:00p Yadiel Olea MD, Dena Aguilera.Iris 44634 370.00 pc Office Visit 01/24/2009 10:15a Yadiel Olea MD, Dena Aguilera.DJimmy 65265 370.00 pc Office Visit 01/18/2009 2:15p Yadiel Olea MD, Dena Aguilera.Iris 45984 370.00 pc Office Visit 01/10/2009 10:30a Yadiel Olea MD, Christie Henry O.D. 60326 370.00 pc Office Visit 01/03/2009 11:15a Yadiel Olea MD, Yadiel Olea M.D. 56348 370.00 pc Office Visit 01/01/2009 3:15p Yadiel Olea MD, Yadiel Olea M.D. 02944 370.00 pc Office Visit 12/31/2008 10:30a Yadiel Olea MD, Yadiel Olea M.D. 03881 370.00 pc Office Visit 12/29/2008 1:15p Yadiel Olea MD, Christie Henry O.D. 11066 370.00 pc Office Visit 12/24/2008 1:45p Yadiel Olea MD, Christie Henry O.D. 17698 053.9 pc Office Visit 12/20/2008 9:45a Yadiel Olea MD, Dena Aguilera.Iris 39253 053.9 pc Office Visit 12/18/2008 3:30p Yadiel Olea MD, Christie Henry O.D. 96073 053.9 pc Office Visit 12/17/2008 3:30p Yadiel Olea MD, Christie Henry O.D. 84794 053.9 pc Office Visit 01/14/2007 3:10p Yadiel Olea MD, Lakeisha Sellers, 79093 370.20 pc O.D. Office Visit 09/01/2005 12:00p Yadeil Olea MD, Yadiel Olea M.D. 49720 368.40 pc Office Visit 06/12/2005 10:00a Yadiel Olea MD, Yadiel Olea M.D. 16386 370.20 pc Office Visit 06/05/2005 10:20a Yadiel Olea MD, Lakeisha Sellers, 84383 370.20 pc O.D. Office Visit 05/29/2005 12:30p Yadiel Olea MD, Yadiel Olea M.D. 77996 370.20 pc Office Visit 12/31/2004 10:30a Yadiel Olea MD, Yadiel Olea M.D. 17391 375.15 pc Office Visit 06/02/2004 10:30a Yadiel Olea MD, Lakeisha Sellers, 49720 370.20 pc O.D. Office Visit 08/31/2003 10:00a Yadiel Olea MD, Yadiel Olea M.D. 05366 370.20 pc Plan of Care 2017 - Rey Barrow M.D.H40.052 Ocular hypertension, left eyeComments :Smoking can increase the risk of developing or worsening any eye related disease, as well as affect your overall health. If you are a smoker, we strongly recommend that you quit.If you are not a smoker, we strongly recommend that you do not start. You have Ocular Hypertension in your left eye. Thismeans that your eye pressure is higher than average, but you have not been diagnosed with Glaucoma.Follow up:3 Month Follow Up IOP TZBETQ99.423 Band keratopathy, bilateralComments:TRY STOPPING THE STEROID EYE DROPS TO SEE IF THE EYES FEEL ANY DIFFERENT OFF OF THEM
--- OUTSIDE RECORDS SUMMARY | 2017-07-14 17:10 | XMS REPORT ---
:1935 External Reference #:[id number] Author Organization [facility] Address [address] [place] [address] Phone [phone] Care Team Providers Name Role Phone Anselmo Smith M.D. Primary Care Physician Unavailable Payers Type Date Identification Numbers Payment Provider Subscriber Commercial Policy Number: [id number] BS CNY Taina Bhargavi [employer] Group Number: [id number] [address] [address] PayID: [id number] [place] [address] Problems Date Description Provider Status Onset: Type [...] Form Strength Qnty SIG Indications Ordering Provider Simbrinza 06/01 Active Suspension 1-0.2% 1 drop left eye 3 times a day Prednisolone Acetate 10/15 Active Suspension 1% 15ml 1 drop Christie Sotomayor both Gil, eyes O.D. every day Refresh Liquigel 10/23 Active Solution 1% 1 drop both C. Oltz, eyes as O.D. needed Avi 128 10/23 Active Ointment 5% Dorota - both C. Oltz, eyes O.D. every night Prednisone Active Tablets 2.5mg Unknown / Azathioprine Active Tablets 50mg Unknown / Humalog Active Solution 100Unit/M Unknown /0000 L Lantus Active Solution 100Unit/M Unknown /0000 L Vitamin D Active Capsules 1000Unit 1 tab Unknown (Cholecalciferol) po daily Centrum Silver Active Chewtabs Unknown / Lasix Active Tablets 20mg Unknown / Avi 128 Active Solution 5% 15ml Drops - Rey 1 drop Zablocki, both M.D. eyes twice daily Tobradex 02/28 Hx Ointment 0.3-0.1% 3.[address] place H18.423 gm 0.5 Vini Henry, - inch O.D. 04/13 in left eye at night for 2 weeks Aspirin Low Dose 06/25 Hx Tablets 81mg 1 by mouth Vini Henry, - every O.D. 02/27 day Prednisolone Acetate 10/23 Hx Suspension 1% 1 both eyes Vini Henry, - every O.D. Avi 128 10/23 Hx Solution 5% both eyes Vini Henry, - four O.D. 11/04 times day Hydrochlorothiazide /00 Hx Capsules 12.5mg Unknown / - 06/17 Ramipril /00 Hx Capsules 10mg Unknown / - 11/04 Fish Oil-Flax Hx Capsules Unknown Oil-Borage Oil / - 02/27 Centrum Silver 00/00 Hx Chewtabs Unknown / - 06/25 Vitamin D3 00/00 Hx Capsules 1000Unit Unknown / - 06/25 Lasix 00/00 Hx Tablets 20mg every Unknown /0000 other - day 12/01 Metoprolol Succinate 00/00 [...] Unknown ER /0000 24HR - 08/05 Lasix 00/00 Hx Tablets 20mg 1 tab Unknown /0000 po - daily 06/01 Ramipril Hx Capsules 5mg 1 tab Unknown / po - daily 05/26 Acetazolamide Hx Tablets 125mg 1 Unknown tablet - twice 06/16 Results Description No Information Procedures Date CPT Code Description Status 06/02/2017 27080 Est Patient Intermediate Exam Completed 04/27/2017 93688 Determination Of Refractive State Completed 02/03/2017 91594 Est Patient Comprehensive Exam Completed 11/10/2016 71281 Est Patient Intermediate Exam Completed 08/21/2016 27619 Determination Of Refractive State Completed 08/21/2016 07399 Est Patient Intermediate Exam Completed 02/29/2016 13524 Est Patient Intermediate Exam Completed 01/01/2016 54634 Est Patient Intermediate Exam Completed 11/06/2015 22443 Est Patient Intermediate Exam Completed 06/26/2015 57678 Determination Of Refractive State Completed 06/26/2015 19008 Est Patient Comprehensive Exam Completed 10/24/2014 48994 Pachymetry Completed 10/24/2014 55404 Est Patient Intermediate Exam Completed 06/26/2014 34670 Scanning Computerized Opthalmic Diagnostic Posterior Completed Seg Retina 06/26/2014 35590 Est Patient Comprehensive Exam Completed 05/21/2014 90201 Est Patient Intermediate Exam Completed 03/21/2014 21475 Est Patient Intermediate Exam Completed 10/25/2013 04490 Est Patient Intermediate Exam Completed 10/18/2013 59560 Contact Lens For Treatment Of Ocular Surface Disease Completed 10/18/2013 08387 Est Patient Intermediate Exam Completed 10/04/2013 87221 Est Patient Intermediate Exam Completed 06/27/2013 08301 Est Patient Comprehensive Exam Completed 12/26/2012 87697 Est Patient Comprehensive Exam Completed 12/26/2012 90774 Scanning Computerized Opthalmic Diagnostic Posterior Completed Seg Retina 11/29/2012 68382 Determination Of Refractive State Completed 10/14/2012 66967 Est Patient Intermediate Exam Completed 09/13/2012 89624 Est Patient Intermediate Exam Completed 06/23/2012 91003 Fundus Photography With Interpretation And Report Completed 06/23/2012 62220 Est Patient Intermediate Exam Completed 06/23/2012 525 Dry Eye Therapy Kits Completed 05/25/2012 525 Recheck Completed 12/22/2011 69299 Scanning Computerized Opthalmic Diagnostic Posterior Completed Seg Retina 12/22/2011 81121 Determination Of Refractive State Completed 12/22/2011 99084 Est Patient Comprehensive Exam Completed 06/23/2011 48557 Est Patient Intermediate Exam Completed 06/23/2011 69146 Determination Of Refractive State Completed 05/20/2011 81612 Remove Foreign Body Cornea W/Slit Lamp Completed 12/18/2010 17494 Est Patient Intermediate Exam Completed 12/18/2010 516 Cod Liver Oil Tablets Completed 08/14/2010 50248 Est Patient Intermediate Exam Completed 06/19/2010 51921 Scanning Computerized Opthalmic Diagnostic Posterior Completed Seg Retina 06/19/2010 87090 Est Patient Intermediate Exam Completed 01/21/2010 02688 Determination Of Refractive State Completed 01/21/2010 62622 Est Patient Comprehensive Exam Completed 10/24/2009 16217 Est Patient Intermediate Exam Completed 09/24/2009 94104 Est Patient Intermediate Exam Completed 09/24/2009 21375 Scanning Laser W/Interp And Report Completed 03/26/2009 19167 Scanning Laser W/Interp And Report Completed 03/26/2009 23727 Determination Of Refractive State Completed 03/26/2009 52846 Est Patient Comprehensive Exam Completed 12/15/2008 66768 Est Patient Intermediate Exam Completed 09/18/2008 64663 Est Patient Intermediate Exam Completed 05/21/2008 78242 Recheck Completed 03/19/2008 82979 Scanning Laser W/Interp And Report Completed 03/19/2008 70477 Determination Of Refractive State Completed 03/19/2008 73799 Est Patient Comprehensive Exam Completed 09/14/2007 516 Cod Liver Oil Tablets Completed 09/14/2007 09827 Est Patient Intermediate Exam Completed 09/14/2007 08031 Fundus Photography With Interpretation And Report Completed 03/15/2007 89142 Scanning Laser W/Interp And Report Completed 03/15/2007 28736 Est Patient Intermediate Exam Completed 01/31/2007 65465 Est Patient Intermediate Exam Completed 01/07/2007 52592 Est Patient Intermediate Exam Completed 08/20/2006 85537 Determination Of Refractive State Completed 08/20/2006 61304 Est Patient Comprehensive Exam Completed 06/18/2006 52141 Est Patient Intermediate Exam Completed 11/09/2005 27767 Est Patient Intermediate Exam Completed 04/20/2005 03112 Est Patient Intermediate Exam Completed 04/17/2005 51857 Rescheduled Appointment Completed 04/02/2005 49056 Determination Of Refractive State Completed 04/02/2005 14051 Est Patient Comprehensive Exam Completed 12/25/2004 04844 Rescheduled Appointment Completed 12/19/2004 54352 Rescheduled Appointment Completed 09/16/2004 89547 Est Patient Intermediate Exam Completed 06/20/2004 19515 Fundus Photography With Interpretation And Report Completed 06/20/2004 47852 Est Patient Comprehensive Exam Completed 05/23/2004 11982 Est Patient Intermediate Exam Completed 05/13/2004 16891 Close Lacrimal Punctum, Plug Completed 05/09/2004 77940 Est Patient Intermediate Exam Completed 05/05/2004 32367 Close Lacrimal Punctum, Plug Completed 05/05/2004 19376 Est Patient Intermediate Exam Completed 04/16/2004 64683 Est Patient Comprehensive Exam Completed 04/16/2004 03938 Close Lacrimal Punctum, Plug Completed 11/06/2003 18033 Fundus Photography With Interpretation And Report Completed 11/06/2003 88886 Est Patient Intermediate Exam Completed 10/25/2003 48843 Patient No Show For Appt Completed 10/24/2003 87633 Rescheduled Appointment Completed 10/09/2003 04030 Est Patient Intermediate Exam Completed 10/02/2003 13057 Patient No Show For Appt Completed 09/24/2003 77832 Est Patient Intermediate Exam Completed Encounters Type Date Location Provider CPT E/M Dx Office Visit 06/17/2017 2:45p Yadiel Olea MD, Rey Barrow, 39783 H21.02 [place] H40.052 Office Visit 06/15/2017 2:30p Yadiel Olea MD, Rey Barrow M.D. 95191 H21.02 pc H40.052 H18.20 Office Visit 05/27/2017 1:15p Yadiel Olea MD, Christie Cordero O.D. 77413 H40.89 pc Office Visit 04/14/2016 10:15a Yadiel Olea MD, Christie Cordero O.D. 27540 H18.423 pc Office Visit 03/16/2016 2:45p Yadiel Olea MD, Christie Cordero O.D. 81689 H43.11 pc H18.423 Office Visit 02/21/2014 2:00p Yadiel Olea MD, Christie Henry O.DJimmy 79967 371.20 pc Office Visit 12/26/2013 10:15a Yadiel Olea MD, Christie Henry O.DJimmy 79518 371.20 pc 371.43 Office Visit 11/15/2013 1:45p Yadiel Olea MD, Christie Henry O.DJimmy 56284 371.20 pc Office Visit 11/29/2012 10:00a Yadiel Olea MD, Christie Henry O.DJimmy 91936 371.43 pc Office Visit 10/29/2012 10:45a Yadiel Olea MD, Christie Henry O.DJimmy 85345 371.43 pc Office Visit 10/21/2012 2:30p Yadiel Olea MD, Christie Henry O.DJimmy 26619 371.43 pc Office Visit 05/22/2011 2:20p Yadiel Olea MD, Lakeisha Sellers, 67581 375.15 pc O.D. Office Visit 10/23/2010 11:15a Yadiel Olea MD, Christie Henry O.DJimmy 58677 370.20 pc Office Visit 10/01/2010 9:30a Yadiel Olea MD, Dena Aguilera.Iris 42198 371.42 pc Office Visit 09/27/2010 9:15a Yadiel Olea MD, Dena Aguilera.Iris 30792 371.42 pc Office Visit 09/26/2010 10:15a Yadiel Olea MD, Christie Henry O.DJimmy 11593 371.42 pc Office Visit 09/24/2010 10:00a Yadiel Olea MD, Christie Henry O.DJimmy 47372 371.42 pc Office Visit 08/20/2010 9:30a Yadiel Olea MD, Christie Henry O.DJimmy 78463 370.20 pc Office Visit 04/20/2009 10:15a Yadiel Olea MD, Rolando Correa 96438 375.15 pc O.D. Office Visit 02/07/2009 3:00p Yadiel Olea MD, Christie Henry O.D. 09350 370.00 pc Office Visit 01/24/2009 10:15a Yadiel Olea MD, Christie Henry O.D. 93005 370.00 pc Office Visit 01/18/2009 2:15p Yadiel Olea MD, Christie Henry O.D. 74620 370.00 pc Office Visit 01/10/2009 10:30a Yadiel Olea MD, Christie Henry O.D. 53684 370.00 pc Office Visit 01/03/2009 11:15a Yadiel Olea MD, Yadiel Olea M.D. 96120 370.00 pc Office Visit 01/01/2009 3:15p Yadiel Olea MD, Yadiel Olea M.D. 96849 370.00 pc Office Visit 12/31/2008 10:30a Yadiel Olea MD, Yadiel Olea M.D. 12765 370.00 pc Office Visit 12/29/2008 1:15p Yadiel Olea MD, Christie Henry O.D. 42663 370.00 pc Office Visit 12/24/2008 1:45p Yadiel Olea MD, Christie Henry O.D. 39644 053.9 pc Office Visit 12/20/2008 9:45a Yadiel Olea MD, Dena Aguilera.Iris 43371 053.9 pc Office Visit 12/18/2008 3:30p Yadiel Olea MD, Christie Henry O.D. 61723 053.9 pc Office Visit 12/17/2008 3:30p Yadiel Olea MD, Dena Aguilera.Iris 75937 053.9 pc Office Visit 01/14/2007 3:10p Yadiel Olea MD, Lakeisha Sellers 80117 370.20 pc O.D. Office Visit 09/01/2005 12:00p Yadiel Olea MD, Yadiel Olea M.D. 99647 368.40 pc Office Visit 06/12/2005 10:00a Yadiel Olea MD, Yadiel Olea M.D. 30044 370.20 pc Office Visit 06/05/2005 10:20a Yadiel Olea MD, Lakeisha Sellers, 14131 370.20 pc O.D. Office Visit 05/29/2005 12:30p Yadiel Olea MD, Yadiel Olea M.D. 35005 370.20 pc Office Visit 12/31/2004 10:30a Yadiel Olea MD, Yadiel Olea M.D. 35696 375.15 pc Office Visit 06/02/2004 10:30a Yadiel Olea MD, Lakeisha Sellers, 88533 370.20 pc O.D. Office Visit 08/31/2003 10:00a Yadiel Olea MD, Yadiel Olea M.D. 76079 370.20 Plan of Care Future Appointment(s):07/01/2017 2:30 pm - Rey Barrow M.D. at Yadiel Olea MD, 06/17/2017 - Rey Barrow M.D.H21.02 Hyphema, left eyeComments :Smoking can increase the risk of developing or worsening any eye related disease, as well as affect your overall health. If you are a smoker, we strongly recommend that you quit.If you are not a smoker, we strongly recommend that you do not start. STOP THE SIMBRINZA 2 DAYS BEFORE THE NEXT [id number] Ocular hypertension, left eye
--- OUTSIDE RECORDS SUMMARY | 2017-07-14 17:11 | XMS REPORT ---
:1935 External Reference #:[id number] Author Organization [facility] [employer] Address [address] [place] [address] Phone [phone] Care Team Providers Name Role Phone Anselmo Smith M.D. Primary Care Physician Unavailable Payers Type Date Identification Numbers Payment Provider Subscriber Commercial Policy Number: [id number] BS CN[employer] Taina Bhargavi Borjas Group Number: [id number] [address] [address] PayID: [id number] [place] [address] Problems Date Description Provider Status Onset: Type [...] 1000Unit 1 tab Unknown (Cholecalciferol) po daily Acetazolamide Active Tablets 125mg 1 tablet twice daily Centrum Silver Active Chewtabs Lasix Active Tablets 20mg Avi 128 Active Solution 5% 15ml Drops - 1 drop Zablocki, left M.D. eye 4 times daily / right eye 2 times daily Tobradex 02/28 Hx Ointment 0.3-0.1% 3.500 place H18.423 gm 0.5 Vini Henry, - inch O.D. 04/13 in left eye at night for 2 weeks Aspirin Low Dose 06/25 Hx Tablets 81mg 1 by mouth Vini Henry, - every O.D. 02/27 day Prednisolone Acetate 10/23 Hx Suspension 1% both eyes Vini Henry, - every O.D. Avi 128 10/23 Hx Solution 5% both eyes Vini Henry, - four O.D. 11/04 times day Hydrochlorothiazide / Hx Capsules 12.5mg Unknown - 06/17 Ramipril Hx Capsules 10mg Unknown / - 11/04 Fish Oil-Flax Hx Capsules Unknown Oil-Borage Oil /02/27 Centrum Silver /00 Hx Chewtabs Unknown / - 06/25 Vitamin D3 Hx Capsules 1000Unit Unknown 06/25 Lasix 00/00 [...] 02/27 Carvedilol 00/00 Hx Tablets 3.125mg Unknown /02/27 Aspirin 00/[address] 81mg every [...] tab Unknown /0000 po - daily 05/26 Results Description No Information Procedures Date CPT Code Description Status 06/02/2017 92384 Est Patient Intermediate Exam Completed 04/27/2017 10721 Determination Of Refractive State Completed 02/03/2017 57901 Est Patient Comprehensive Exam Completed 11/10/2016 55769 Est Patient Intermediate Exam Completed 08/21/2016 30292 Determination Of Refractive State Completed 08/21/2016 95230 Est Patient Intermediate Exam Completed 02/29/2016 00638 Est Patient Intermediate Exam Completed 01/01/2016 65468 Est Patient Intermediate Exam Completed 11/06/2015 42599 Est Patient Intermediate Exam Completed 06/26/2015 76506 Determination Of Refractive State Completed 06/26/2015 99419 Est Patient Comprehensive Exam Completed 10/24/2014 89590 Pachymetry Completed 10/24/2014 30533 Est Patient Intermediate Exam Completed 06/26/2014 00874 Scanning Computerized Opthalmic Diagnostic Posterior Completed Seg Retina 06/26/2014 66380 Est Patient Comprehensive Exam Completed 05/21/2014 57241 Est Patient Intermediate Exam Completed 03/21/2014 15474 Est Patient Intermediate Exam Completed 10/25/2013 28957 Est Patient Intermediate Exam Completed 10/18/2013 05296 Contact Lens For Treatment Of Ocular Surface Disease Completed 10/18/2013 14942 Est Patient Intermediate Exam Completed 10/04/2013 66731 Est Patient Intermediate Exam Completed 06/27/2013 93659 Est Patient Comprehensive Exam Completed 12/26/2012 29851 Est Patient Comprehensive Exam Completed 12/26/2012 93276 Scanning Computerized Opthalmic Diagnostic Posterior Completed Seg Retina 11/29/2012 00519 Determination Of Refractive State Completed 10/14/2012 66620 Est Patient Intermediate Exam Completed 09/13/2012 17902 Est Patient Intermediate Exam Completed 06/23/2012 48828 Fundus Photography With Interpretation And Report Completed 06/23/2012 20579 Est Patient Intermediate Exam Completed 06/23/2012 525 Dry Eye Therapy Kits Completed 05/25/2012 525 Recheck Completed 12/22/2011 18003 Scanning Computerized Opthalmic Diagnostic Posterior Completed Seg Retina 12/22/2011 86146 Determination Of Refractive State Completed 12/22/2011 50127 Est Patient Comprehensive Exam Completed 06/23/2011 63856 Est Patient Intermediate Exam Completed 06/23/2011 31542 Determination Of Refractive State Completed 05/20/2011 42486 Remove Foreign Body Cornea W/Slit Lamp Completed 12/18/2010 63817 Est Patient Intermediate Exam Completed 12/18/2010 516 Cod Liver Oil Tablets Completed 08/14/2010 78895 Est Patient Intermediate Exam Completed 06/19/2010 79385 Scanning Computerized Opthalmic Diagnostic Posterior Completed Seg Retina 06/19/2010 16916 Est Patient Intermediate Exam Completed 01/21/2010 26201 Determination Of Refractive State Completed 01/21/2010 09385 Est Patient Comprehensive Exam Completed 10/24/2009 59934 Est Patient Intermediate Exam Completed 09/24/2009 85084 Est Patient Intermediate Exam Completed 09/24/2009 89879 Scanning Laser W/Interp And Report Completed 03/26/2009 38040 Scanning Laser W/Interp And Report Completed 03/26/2009 43317 Determination Of Refractive State Completed 03/26/2009 46060 Est Patient Comprehensive Exam Completed 12/15/2008 57970 Est Patient Intermediate Exam Completed 09/18/2008 50758 Est Patient Intermediate Exam Completed 05/21/2008 16794 Recheck Completed 03/19/2008 31651 Scanning Laser W/Interp And Report Completed 03/19/2008 82559 Determination Of Refractive State Completed 03/19/2008 45607 Est Patient Comprehensive Exam Completed 09/14/2007 516 Cod Liver Oil Tablets Completed 09/14/2007 39959 Est Patient Intermediate Exam Completed 09/14/2007 34572 Fundus Photography With Interpretation And Report Completed 03/15/2007 66768 Scanning Laser W/Interp And Report Completed 03/15/2007 14866 Est Patient Intermediate Exam Completed 01/31/2007 72862 Est Patient Intermediate Exam Completed 01/07/2007 46503 Est Patient Intermediate Exam Completed 08/20/2006 74864 Determination Of Refractive State Completed 08/20/2006 83668 Est Patient Comprehensive Exam Completed 06/18/2006 74667 Est Patient Intermediate Exam Completed 11/09/2005 83585 Est Patient Intermediate Exam Completed 04/20/2005 92422 Est Patient Intermediate Exam Completed 04/17/2005 64087 Rescheduled Appointment Completed 04/02/2005 43525 Determination Of Refractive State Completed 04/02/2005 59487 Est Patient Comprehensive Exam Completed 12/25/2004 99630 Rescheduled Appointment Completed 12/19/2004 35757 Rescheduled Appointment Completed 09/16/2004 12439 Est Patient Intermediate Exam Completed 06/20/2004 81653 Fundus Photography With Interpretation And Report Completed 06/20/2004 16837 Est Patient Comprehensive Exam Completed 05/23/2004 53721 Est Patient Intermediate Exam Completed 05/13/2004 81539 Close Lacrimal Punctum, Plug Completed 05/09/2004 37497 Est Patient Intermediate Exam Completed 05/05/2004 23944 Close Lacrimal Punctum, Plug Completed 05/05/2004 62511 Est Patient Intermediate Exam Completed 04/16/2004 16407 Est Patient Comprehensive Exam Completed 04/16/2004 11462 Close Lacrimal Punctum, Plug Completed 11/06/2003 53208 Fundus Photography With Interpretation And Report Completed 11/06/2003 36364 Est Patient Intermediate Exam Completed 10/25/2003 49338 Patient No Show For Appt Completed 10/24/2003 77042 Rescheduled Appointment Completed 10/09/2003 19292 Est Patient Intermediate Exam Completed 10/02/2003 02007 Patient No Show For Appt Completed 09/24/2003 54257 Est Patient Intermediate Exam Completed Encounters Type Date Location Provider CPT E/M Dx Office Visit 05/27/2017 Yadiel Olea MD, Christie Cordero O.D. 15669 H40.89 1:15p pc Office Visit 04/14/2016 Yadiel Olea MD, Christie Cordero O.D. 87583 H18.423 10:15a pc Office Visit 03/16/2016 Yadiel Olea MD, Christie Cordero O.D. 34267 H43.11 2:45p pc H18.423 Office Visit 02/21/2014 2:00p Yadiel Olea MD, Christie Henry O.D. 24685 371.20 pc Office Visit 12/26/2013 10:15a Yadiel Olea MD, Christie Henry O.D. 16401 371.20 pc 371.43 Office Visit 11/15/2013 1:45p Yadiel Olea MD, Christie Henry O.DJimmy 74523 371.20 pc Office Visit 11/29/2012 10:00a Yadiel Olea MD, Dena Aguilera.DJimmy 52267 371.43 pc Office Visit 10/29/2012 10:45a Yadiel Olea MD, Christie Henry O.DJimmy 07206 371.43 pc Office Visit 10/21/2012 2:30p Yadiel Olea MD, Dena Aguilera.DJimmy 72671 371.43 pc Office Visit 05/22/2011 2:20p Yadiel Olea MD, Lakeisha Sellers, 25448 375.15 pc O.D. Office Visit 10/23/2010 11:15a Yadiel Olea MD, Dena Aguilera.DJimmy 07272 370.20 pc Office Visit 10/01/2010 9:30a Yadiel Olea MD, Dena Aguilera.DJimmy 16960 371.42 pc Office Visit 09/27/2010 9:15a Yadiel Olea MD, Dena Aguilera.DJimmy 85643 371.42 pc Office Visit 09/26/2010 10:15a Yadiel Olea MD, Dena Aguilera.DJimmy 12027 371.42 pc Office Visit 09/24/2010 10:00a Yadiel Olea MD, Dena Aguilera.Iris 27831 371.42 pc Office Visit 08/20/2010 9:30a Yadiel Olea MD, Christie Henry O.DJimmy 85454 370.20 pc Office Visit 04/20/2009 10:15a Yadiel Olea MD, Rolando Correa 17861 375.15 pc O.D. Office Visit 02/07/2009 3:00p Yadiel Olea MD, Christie Henry O.DJimmy 17693 370.00 pc Office Visit 01/24/2009 10:15a Yadiel Olea MD, Dena Aguilera.DJimmy 70126 370.00 pc Office Visit 01/18/2009 2:15p Yadiel Olea MD, Christie Henry O.D. 92721 370.00 pc Office Visit 01/10/2009 10:30a Yadiel Olea MD, Dena Aguilera.Iris 49305 370.00 pc Office Visit 01/03/2009 11:15a Yadiel Olea MD, Yadiel Olea M.D. 83187 370.00 pc Office Visit 01/01/2009 3:15p Yadiel Olea MD, Yadiel Olea M.D. 99429 370.00 pc Office Visit 12/31/2008 10:30a Yadiel Olea MD, Yadiel Olea M.D. 25368 370.00 pc Office Visit 12/29/2008 1:15p Yadiel Olea MD, Dena Aguilera.Iris 55654 370.00 pc Office Visit 12/24/2008 1:45p Yadiel Olea MD, Dena Aguilera.Iris 96151 053.9 pc Office Visit 12/20/2008 9:45a Yadiel Olea MD, Christie Henry O.D. 17767 053.9 pc Office Visit 12/18/2008 3:30p Yadiel Olea MD, Dena Aguilera.Iris 29307 053.9 pc Office Visit 12/17/2008 3:30p Yadiel Oela MD, Christie Henry O.D. 64146 053.9 pc Office Visit 01/14/2007 3:10p Yadiel Olea MD, Lakeisha Sellers, 55478 370.20 pc O.D. Office Visit 09/01/2005 12:00p Yadiel Olea MD, Yadiel Olea M.D. 83321 368.40 pc Office Visit 06/12/2005 10:00a Yadiel Olea MD, Yadiel Olea M.D. 06562 370.20 pc Office Visit 06/05/2005 10:20a Yadiel Olea MD, Lakeisha Sellers, 11778 370.20 pc O.D. Office Visit 05/29/2005 12:30p Yadiel Olea MD, Yadiel Olea M.D. 86445 370.20 pc Office Visit 12/31/2004 10:30a Yadiel Olea MD, Yadiel Olea M.D. 98031 375.15 pc Office Visit 06/02/2004 10:30a Yadiel Olea MD, Lakeisha Sellers, 79419 370.20 pc O.D. Office Visit 08/31/2003 10:00a Yadiel Olea MD, Yadiel Olea M.D. 41530 370.20 pc Plan of Care 06/15/2017 - Rey Barrow M.D.H21.02 Hyphema, left eyeComments:Smoking can increase the risk of developing or worsening any eye related disease, as well as affect your overall health. If you are a smoker, we strongly recommend that you quit.If you are not a smoker, we strongly recommend that you do not start. STOP THE DIAMOX PILL MEDICATION.CONTINUE TO USE THE SIMBRINZAI WILL CHECK ON YOUR EYE PRESSURE AGAIN ON WEDNESDAYFoow up:WEDNESDAY WITH GZ IOP CHECK At your next visit, we are not planning to dilate your eyes. However, if you have any changes in your vision or new symptoms, there are certain situations that require us to dilate your eyes. If Dr. Barrow requests any additional testing , that may require extra time. If you have any questions before your next appointment, please call our office at .H40.052 Ocular hypertension, left eyeComments:You have Ocular Hypertension in your left eye. This means that your eye pressure is higher than average, but you have not been diagnosed with Glaucoma.H18.20 Unspecified corneal edema
[2017-07-14 17:12] VITALS: BP 143/76
--- NOTE | 2017-07-14 17:17 | UC ---
FLU HPI - HPI Summary HPI Summary: Pt presents with a non productive cough that began yesterday. She tells me that she was sick with this 3 weeks ago and was given a zpak and her symptoms resolved. She is requesting a zpak again today. Denies fever, chills, SOB, chest pain, abdominal pain, n/v/d/c. - History of Current Complaint Chief Complaint: UCGeneralIllness Stated Complaint: COUGH Time Seen by Provider: 07/14/17 17:17 Hx Obtained From: Patient Onset/Duration: Sudden Onset Pain Intensity: 0 - Allergy/Home Medications Allergies/Adverse Reactions: Allergies Allergy/AdvReac Type Severity Reaction Status Date / Time clindamycin Allergy Intermediate GI Upset Verified 07/14/17 17:58 MS Penicillins [PCN] Allergy Intermediate Airway Verified 07/14/17 17:14 Obstruction MS Sulfamethoxazole Allergy Intermediate Rash Verified 07/14/17 17:14 w/Trimethoprim [From Bactrim] carvedilol [From Coreg] Allergy Fatigue Verified 07/14/17 17:14 clopidogrel [From Plavix] Allergy Fatigue Verified 07/14/17 17:14 metoprolol Allergy Fatigue Verified 07/14/17 17:14 MS Ciprofloxacin AdvReac Severe TENDON TEAR Verified 07/14/17 17:14 [Ciprofloxacin] MS Omeprazole [Omeprazole] AdvReac Severe Abdominal Verified 07/14/17 17:14 Pain MS Quinapril [From Accupril] AdvReac Severe Coughing Verified 07/14/17 17:14 PMH/Surg Hx/FS Hx/Imm Hx Endocrine History: Diabetes Cardiovascular History: Cardiac Disease, Pacemaker/ICD - Surgical History Surgical History: Yes Surgery Procedure, Year, and Place: HYSTERECTMY; LSP LAMINECTOMY; RIGHT RENAL TRANSPLANT; BILAT CATARACT SURGERY; SQUAMOUS CELL REMOVAL - Family History Known Family History: Positive: Cardiac Disease - CAD to sister - Social History Occupation: Retired Lives: With Family Alcohol Use: Occasionally Substance Use Type: None Smoking Status (MU): Former Smoker Type: Cigarettes Length of Time of Smoking/Using Tobacco: 15 years Have You Smoked in the Last Year: No Review of Systems Constitutional: Negative Skin: Negative Eyes: Negative ENT: Negative Respiratory: Cough Cardiovascular: Negative Gastrointestinal: Negative Musculoskeletal: Negative Neurological: Negative Psychological: Negative All Other Systems Reviewed And Are Negative: Yes Physical Exam Triage Information Reviewed: Yes Appearance: Well-Appearing, No Pain Distress, Well-Nourished Vital Signs: Initial Vital Signs Temp 98.3 F 07/14/17 17:00 Pulse 80 07/14/17 17:00 Resp 16 07/14/17 17:00 BP 143/76 07/14/17 17:00 Pulse Ox 100 07/14/17 17:00 Vital Signs Reviewed: Yes Eyes: Positive: Conjunctiva Clear. Negative: Conjunctiva Inflamed, Discharge ENT: Positive: Hearing grossly normal, Pharynx normal, TMs normal, Uvula midline. Negative: Pharyngeal erythema, Nasal congestion, Nasal drainage, TM bulging, TM dull, TM red, Tonsillar swelling, Tonsillar exudate, Hoarse voice, Sinus tenderness Neck: Positive: Supple, Nontender, No Lymphadenopathy Respiratory: Positive: Chest non-tender, Lungs clear, Normal breath sounds, No respiratory distress, No accessory muscle use Cardiovascular: Positive: RRR Neurological: Positive: Alert Psychological: Positive: Age Appropriate Behavior Skin: Negative: rashes Flu Course/Dx - Course Course Of Treatment: CXR: IMPRESSION: 1. CARDIOMEGALY. 2. COPD. Given her comorbidities will treat her with cefdinir and azithromycin. Advised f/u next week with her PCP for further evaluation. - Differential Dx/Diagnosis Provider Diagnoses: Cough Discharge - Discharge Plan Condition: Stable Disposition: HOME Prescriptions: Azithromycin TAB* [Zithromax TAB (Z-LUIS) 250 mg #6 tabs] 2 tab PO .TODAY, THEN 1 DAILY #1 luis Cefdinir [Cefdinir 300 MG CAP] 300 mg PO BID #10 capsule Patient Education Materials: Acute Cough (ED) Referrals: Anselmo Smith MD [Primary Care Provider] - Additional Instructions: If you develop a fever, shortness of breath, chest pain, new or worsening symptoms - please call your PCP or go to the ED.
--- NOTE | 2017-07-14 17:46 | RAD ---
HISTORY: Cough COMPARISONS: September 14, 2016 VIEWS: 4: Frontal dual-energy and lateral views of the chest. FINDINGS: CARDIOMEDIASTINAL SILHOUETTE: The cardiac silhouette is enlarged. The cardiomediastinal silhouette is otherwise normal. LILIBETH: The lilibeth are normal. PLEURA: The costophrenic angles are sharp. No pleural abnormalities are noted. LUNG PARENCHYMA: There is hyperinflation with flattening of the diaphragm and expansion of the AP diameter of the chest. ABDOMEN: The upper abdomen is clear. There is no subphrenic gas. BONES AND SOFT TISSUES: No bone or soft tissue abnormalities are noted. OTHER: A left-sided pacemaker is noted. IMPRESSION: 1. CARDIOMEGALY. 2. COPD.
== END 2017-07-14 18:05 | disposition home or self-care (01) ==
LOC: UCEAST 16:56
DX: R05 Cough (principal); I51.7 Cardiomegaly; J44.9 Chronic obstructive pulmonary disease, unspecified; E11.9 Type 2 diabetes mellitus without complications; I51.9 Heart disease, unspecified; Z95.810 Presence of automatic (implantable) cardiac defibrillator; Z90.710 Acquired absence of both cervix and uterus; Z94.0 Kidney transplant status; Z98.42 Cataract extraction status, left eye; Z98.41 Cataract extraction status, right eye; Z88.1 Allergy status to other antibiotic agents; Z88.0 Allergy status to penicillin; Z88.2 Allergy status to sulfonamides; Z88.8 Allergy status to other drugs, medicaments and biological substances; Z87.891 Personal history of nicotine dependence
CPT/HCPCS: 71046; 99212; G0463

== ENCOUNTER 2017-10-15 18:23 | Emergency (ER) | payer MEDICARE ==
--- OUTSIDE RECORDS SUMMARY | 2017-10-15 18:28 | XMS REPORT ---
:1935 External Reference #:[id number] Author Organization [facility] [address] Address [address] [place] [address] Phone [phone] Care Team Providers Name Role Phone Anselmo Smith M.D. 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 drop [place], both O.D. eyes once a day Refresh Liquigel 10/23 Active Solution 1% 1 drop both C. Francoistz, eyes as O.D. needed Avi 128 10/23 Active Ointment 5% Dor[place] - both C. Elaine, eyes O.D. every night Prednisone Active Tablets 2.5mg Unknown Azathioprine Active Tablets 50mg Humalog Active Solution 100Unit/M Unknown /0000 L Lantus Active Solution 100Unit/M Unknown /0000 L Vitamin D Active Capsules 1000Unit 1 tab Unknown (Cholecalciferol) po daily Centrum Silver Active Chewtabs Lasix Active Tablets 40mg Unknown / Candesartan 0000 Active Tablets 4mg Unknown Cilexetil Simbrinza 06/01 Hx Suspension 1-0.2% 1 drop left - eye 3 06/28 times day Prednisolone Acetate 10/15 Hx Suspension 1% 15ml 1 drop . both [place], - eyes O.D. 06/29 day Tobradex 02/28 Hx Ointment 0.3-0.1% 3.500 place H18.423 gm 0.5 Vini Henry, - inch O.D. 04/13 in left eye at night for 2 weeks Aspirin Low Dose 06/25 Hx Tablets 81mg 1 by mouth Vini Henry, - every O.D. 02/27 day Prednisolone Acetate 10/23 Hx Suspension 1% 90 both eyes Vini Henry, - every O.D. Avi 128 10/23 Hx Solution 5% both eyes Vini Henry, - four O.D. 11/04 times day Hydrochlorothiazide 00/00 Hx Capsules 12.5mg Unknown / - 06/17 Ramipril 0000 Hx Capsules 10mg Unknown / - 11/04 Fish Oil-Flax Hx Capsules Unknown Oil-Borage Oil / - 02/27 Centrum Silver / Hx Chewtabs - 06/25 Vitamin D3 00/ Hx Capsules 1000Unit Unknown / - 06/25 Lasix 00/00 Hx Tablets 20mg every Unknown / other - day 12/01 Metoprolol Succinate 00/00 Hx Tablets ER 1/2 Of Unknown ER / 24HR 25mg - 11/04 Zantac 00/00 Hx Tablets 150mg Unknown / - 11/04 Torsemide 00/00 Hx Tablets 10mg Unknown / - 02/27 Lisinopril 00/00 Hx Tablets 10mg Unknown / - 02/27 Carvedilol 00/00 Hx Tablets 3.125mg Unknown / - 02/27 Aspirin 00/[address] 81mg every Unknown / other - day 08/05 Furosemide 00/00 Hx Tablets 20mg Unknown /0000 - 08/05 Valsartan /00 Hx Tablets 80mg Unknown / - 04/13 Metoprolol Succinate 00/00 Hx Tablets ER 25mg Unknown ER /0000 24HR - 08/05 Lasix / Hx Tablets 20mg 1 tab Unknown /0000 po - daily 06/01 Ramipril / Hx Capsules 5mg 1 tab Unknown /0000 po - daily 05/26 Acetazolamide Hx Tablets 125mg 1 Unknown /0000 tablet - twice 06/16 Avi 128 / Hx Solution 5% 15ml Drops - Rey 1 drop [place], - both M.D. 06/29 twice daily Azithromycin Hx Tablets 250mg Unknown / - 07/18 Cefdinir / Hx Capsules 300mg Unknown / - 08/02 Cimetidine Hx Tablets 200mg Unknown / - 03/18 Ramipril Hx Capsules 2.5mg Unknown / - 03/18 Bisoprolol Fumarate /00 Hx Tablets 5mg Unknown / - 03/18 Results Description No Information Procedures Date CPT Code Description Status 09/02/2017 62869 Est Patient Intermediate Exam Completed 07/19/2017 99014 Est Patient Comprehensive Exam Completed 06/02/2017 04481 Est Patient Intermediate Exam Completed 04/27/2017 75786 Determination Of Refractive State Completed 02/03/2017 77548 Est Patient Comprehensive Exam Completed 11/10/2016 01110 Est Patient Intermediate Exam Completed 08/21/2016 55326 Determination Of Refractive State Completed 08/21/2016 50717 Est Patient Intermediate Exam Completed 02/29/2016 00656 Est Patient Intermediate Exam Completed 01/01/2016 90053 Est Patient Intermediate Exam Completed 11/06/2015 00840 Est Patient Intermediate Exam Completed 06/26/2015 18541 Est Patient Comprehensive Exam Completed 06/26/2015 82297 Determination Of Refractive State Completed 10/24/2014 65801 Est Patient Intermediate Exam Completed 10/24/2014 50064 Pachymetry Completed 06/26/2014 92251 Scanning Computerized Opthalmic Diagnostic Posterior Completed Seg Retina 06/26/2014 95745 Est Patient Comprehensive Exam Completed 05/21/2014 70683 Est Patient Intermediate Exam Completed 03/21/2014 20388 Est Patient Intermediate Exam Completed 10/25/2013 28782 Est Patient Intermediate Exam Completed 10/18/2013 44982 Contact Lens For Treatment Of Ocular Surface Disease Completed 10/18/2013 51452 Est Patient Intermediate Exam Completed 10/04/2013 70588 Est Patient Intermediate Exam Completed 06/27/2013 27332 Est Patient Comprehensive Exam Completed 12/26/2012 68414 Scanning Computerized Opthalmic Diagnostic Posterior Completed Seg Retina 12/26/2012 12002 Est Patient Comprehensive Exam Completed 11/29/2012 21022 Determination Of Refractive State Completed 10/14/2012 10444 Est Patient Intermediate Exam Completed 09/13/2012 97992 Est Patient Intermediate Exam Completed 06/23/2012 47954 Fundus Photography With Interpretation And Report Completed 06/23/2012 42663 Est Patient Intermediate Exam Completed 06/23/2012 525 Dry Eye Therapy Kits Completed 05/25/2012 525 Recheck Completed 12/22/2011 97177 Est Patient Comprehensive Exam Completed 12/22/2011 22244 Determination Of Refractive State Completed 12/22/2011 89883 Scanning Computerized Opthalmic Diagnostic Posterior Completed Seg Retina 06/23/2011 74904 Determination Of Refractive State Completed 06/23/2011 23803 Est Patient Intermediate Exam Completed 05/20/2011 48085 Remove Foreign Body Cornea W/Slit Lamp Completed 12/18/2010 63166 Est Patient Intermediate Exam Completed 12/18/2010 516 Cod Liver Oil Tablets Completed 08/14/2010 82318 Est Patient Intermediate Exam Completed 06/19/2010 11920 Scanning Computerized Opthalmic Diagnostic Posterior Completed Seg Retina 06/19/2010 26972 Est Patient Intermediate Exam Completed 01/21/2010 05592 Determination Of Refractive State Completed 01/21/2010 91005 Est Patient Comprehensive Exam Completed 10/24/2009 23824 Est Patient Intermediate Exam Completed 09/24/2009 34199 Scanning Laser W/Interp And Report Completed 09/24/2009 39217 Est Patient Intermediate Exam Completed 03/26/2009 03946 Scanning Laser W/Interp And Report Completed 03/26/2009 46023 Determination Of Refractive State Completed 03/26/2009 85605 Est Patient Comprehensive Exam Completed 12/15/2008 54730 Est Patient Intermediate Exam Completed 09/18/2008 65397 Est Patient Intermediate Exam Completed 05/21/2008 63597 Recheck Completed 03/19/2008 88194 Est Patient Comprehensive Exam Completed 03/19/2008 67029 Determination Of Refractive State Completed 03/19/2008 03115 Scanning Laser W/Interp And Report Completed 09/14/2007 46606 Fundus Photography With Interpretation And Report Completed 09/14/2007 29880 Est Patient Intermediate Exam Completed 09/14/2007 516 Cod Liver Oil Tablets Completed 03/15/2007 41979 Scanning Laser W/Interp And Report Completed 03/15/2007 30600 Est Patient Intermediate Exam Completed 01/31/2007 78002 Est Patient Intermediate Exam Completed 01/07/2007 33579 Est Patient Intermediate Exam Completed 08/20/2006 16286 Determination Of Refractive State Completed 08/20/2006 96478 Est Patient Comprehensive Exam Completed 06/18/2006 36919 Est Patient Intermediate Exam Completed 11/09/2005 77471 Est Patient Intermediate Exam Completed 04/20/2005 27199 Est Patient Intermediate Exam Completed 04/17/2005 80452 Rescheduled Appointment Completed 04/02/2005 73143 Determination Of Refractive State Completed 04/02/2005 16342 Est Patient Comprehensive Exam Completed 12/25/2004 29549 Rescheduled Appointment Completed 12/19/2004 31358 Rescheduled Appointment Completed 09/16/2004 06412 Est Patient Intermediate Exam Completed 06/20/2004 04730 Fundus Photography With Interpretation And Report Completed 06/20/2004 39814 Est Patient Comprehensive Exam Completed 05/23/2004 79837 Est Patient Intermediate Exam Completed 05/13/2004 44640 Close Lacrimal Punctum, Plug Completed 05/09/2004 52455 Est Patient Intermediate Exam Completed 05/05/2004 50400 Est Patient Intermediate Exam Completed 05/05/2004 58687 Close Lacrimal Punctum, Plug Completed 04/16/2004 18498 Est Patient Comprehensive Exam Completed 04/16/2004 75643 Close Lacrimal Punctum, Plug Completed 11/06/2003 14231 Fundus Photography With Interpretation And Report Completed 11/06/2003 07659 Est Patient Intermediate Exam Completed 10/25/2003 66792 Patient No Show For Appt Completed 10/24/2003 65018 Rescheduled Appointment Completed 10/09/2003 89929 Est Patient Intermediate Exam Completed 10/02/2003 81442 Patient No Show For Appt Completed 09/24/2003 64720 Est Patient Intermediate Exam Completed Encounters Type Date Location Provider CPT E/M Dx Office Visit 08/03/2017 Yadiel Olae MD, Christie Cordero O.D. 20470 H40.052 11:15a pc H21.02 H43.13 Office Visit 07/27/2017 12:30p Yadiel Olea MD, Christie Cordero O.D. 92074 H43.13 pc E08.3593 H18.423 Office Visit 2017 9:00a Yadiel Olea MD, Rey Barrow 53515 H40.052 pc M.DJimmy H18.423 Office Visit 06/17/2017 2:45p Yadiel Olea MD, Rey Barrow M.D. 74586 H21.02 pc H40.052 Office Visit 06/15/2017 2:30p Yadiel Olea MD, Rey Barrow M.D. 77456 H21.02 pc H40.052 H18.20 Office Visit 05/27/2017 1:15p Yadiel Olea MD, Christie Cordero O.D. 58647 H40.89 pc Office Visit 04/14/2016 10:15a Yadiel Olea MD, Christie Cordero O.D. 37424 H18.423 pc Office Visit 03/16/2016 2:45p Yadiel Olea MD, Christie Cordero O.D. 02167 H43.11 pc H18.423 Office Visit 02/21/2014 2:00p Yadiel Olea MD, Christie Henry O.D. 81945 371.20 pc Office Visit 12/26/2013 10:15a Yadiel Olea MD, Christie Henry O.D. 35208 371.20 pc 371.43 Office Visit 11/15/2013 1:45p Yadiel Olea MD, Christie Henry O.D. 60707 371.20 pc Office Visit 11/29/2012 10:00a Yadiel Olea MD, Christie Henry O.DJimmy 63155 371.43 pc Office Visit 10/29/2012 10:45a Yadiel Olea MD, Christie Henry O.DJimmy 56959 371.43 pc Office Visit 10/21/2012 2:30p Yadiel Olea MD, Christie Henry O.DJimmy 24258 371.43 pc Office Visit 05/22/2011 2:20p Yadiel Olea MD, Lakeisha Sellers, 76789 375.15 pc O.D. Office Visit 10/23/2010 11:15a Yadiel Olea MD, Christie Henry O.DJimmy 53131 370.20 pc Office Visit 10/01/2010 9:30a Yadiel Olea MD, Dena Aguilera.DJimmy 09449 371.42 pc Office Visit 09/27/2010 9:15a Yadiel Olea MD, Christie Henry O.DJimmy 45815 371.42 pc Office Visit 09/26/2010 10:15a Yadiel Olea MD, Christie Henry O.DJimmy 50788 371.42 pc Office Visit 09/24/2010 10:00a Yadiel Olea MD, Christie Henry O.DJimmy 28162 371.42 pc Office Visit 08/20/2010 9:30a Yadiel Olea MD, Dena Aguilera.DJimmy 22519 370.20 pc Office Visit 04/20/2009 10:15a Yadiel Olea MD, Rolando Correa 96840 375.15 pc O.D. Office Visit 02/07/2009 3:00p Yadiel Olea MD, Dena Aguilera.DJimmy 94304 370.00 pc Office Visit 01/24/2009 10:15a Yadiel Olea MD, Dena Aguilera.DJimmy 20207 370.00 pc Office Visit 01/18/2009 2:15p Yadiel Olea MD, Christie Henry O.DJimmy 29720 370.00 pc Office Visit 01/10/2009 10:30a Yadiel Olea MD, Christie Henry O.D. 87278 370.00 pc Office Visit 01/03/2009 11:15a Yadiel Olea MD, Yadiel Olea M.D. 49122 370.00 pc Office Visit 01/01/2009 3:15p Yadiel Olea MD, Yadiel Olea M.D. 51557 370.00 pc Office Visit 12/31/2008 10:30a Yadiel Olea MD, Yadiel Olea M.D. 99814 370.00 pc Office Visit 12/29/2008 1:15p Yadiel Olea MD, Christie Henry O.D. 82064 370.00 pc Office Visit 12/24/2008 1:45p Yadiel Olea MD, Christie Henry O.D. 63395 053.9 pc Office Visit 12/20/2008 9:45a Yadiel Olea MD, Christie Henry O.D. 57109 053.9 pc Office Visit 12/18/2008 3:30p Yadiel Olea MD, Christie Henry O.D. 76489 053.9 pc Office Visit 12/17/2008 3:30p Yadiel Olea MD, Christie Henry O.D. 15317 053.9 pc Office Visit 01/14/2007 3:10p Yadiel Olea MD, Lakeisha Sellers, 76705 370.20 pc O.D. Office Visit 09/01/2005 12:00p Yadiel Olea MD, Yadiel Olea M.D. 42543 368.40 pc Office Visit 06/12/2005 10:00a Yadiel Olea MD, Yadiel Olea M.D. 44490 370.20 pc Office Visit 06/05/2005 10:20a Yadiel Olea MD, Lakeisha Sellers, 31503 370.20 pc O.D. Office Visit 05/29/2005 12:30p Yadiel Olea MD, Yadiel Olea M.D. 69555 370.20 pc Office Visit 12/31/2004 10:30a Yadiel Olea MD, Yadiel Olea M.D. 14981 375.15 pc Office Visit 06/02/2004 10:30a Yadiel Olea MD, Lakeisha Sellers, 85964 370.20 pc O.D. Office Visit 08/31/2003 10:00a Yadiel Olea MD, Yadiel Olea M.D. 16802 370.20 Plan of Care Future Appointment(s):11/10/2017 10:30 am - Christie Cordero O.D. at Yadiel Olea MD, 09/30/2017 - Christie Cordero O.D.H43.13 Vitreous hemorrhage, bilateralComments:Smoking can increase the risk of developing or worsening any eye related disease, as well as affect your overall health. If you are a smoker , we strongly recommend that you quit.If you are not a smoker, we strongly recommend that you do not start.Follow up:as scheduled with [facility] on SyxlfseX41.052 Ocular hypertension, left eyeComments:You have ocular hypertension. This means the eye pressure in your eyes is higher than average, but you have not been diagnosed with Glaucoma. Dr. Cordero may do some additional testing at your follow up visits to determine whether or not you have Glaucoma. Follow up appointments are very important to keep.Follow up:as scheduled for IOP check
[2017-10-15 18:37] VITALS: BP 165/79
--- NOTE | 2017-10-15 20:05 | RAD ---
Indication: "Food and neck" Comparison: Esophagram July 13, 2016 Technique: AP and lateral views of the neck with soft tissue technique. Report: Coarse calcification at the level of the larynx is stable compared to the previous examination and is likely chronic calcification. There is a 4 mm calcification in the posterior aspect of the posterior pharynx but this appears to correspond to an osteophyte seen on the AP view and is stable compared to the previous esophagram. Unremarkable soft tissue contours. Pharyngeal, laryngeal, and tracheal air columns are normal in contour. The epiglottis is normal. The cervical spine and prevertebral soft tissues are normal. IMPRESSION: No definite foreign body identified in the oral pharynx or upper trachea. If symptoms persist, direct visualization is advised.
--- NOTE | 2017-10-15 20:35 | UC ---
UC General HPI - HPI Summary HPI Summary: 82 yo WF c/o feeling of food stuck in her neck after having dry crackers and cheese, initally felt like it stuck in her throat but she coughed it up but thinks theres is still something stuck in esophagus and is worried - History of Current Complaint Chief Complaint: UCRespiratory Stated Complaint: THROAT COMPLAINT Time Seen by Provider: 10/15/17 19:25 Hx Obtained From: Patient Onset/Duration: Sudden Onset Onset Severity: Moderate Current Severity: Moderate Pain Intensity: 0 - Allergy/Home Medications Allergies/Adverse Reactions: Allergies Allergy/AdvReac Type Severity Reaction Status Date / Time clindamycin Allergy Intermediate GI Upset Verified 07/14/17 17:58 carvedilol [From Coreg] Allergy Fatigue Verified 07/14/17 17:14 ciprofloxacin Allergy See Comment Verified 10/15/17 18:47 clopidogrel [From Plavix] Allergy Fatigue Verified 07/14/17 17:14 metoprolol Allergy Fatigue Verified 07/14/17 17:14 omeprazole Allergy Abdominal Verified 10/15/17 18:47 Pain Penicillins Allergy Airway Verified 10/15/17 18:47 Obstruction quinapril [From Accupril] Allergy Coughing Verified 10/15/17 18:47 sulfamethoxazole Allergy Rash Verified 10/15/17 18:47 [From Bactrim] trimethoprim [From Bactrim] Allergy Rash Verified 10/15/17 18:47 Home Medications: Home Medications Candesartan Cilexetil 2 mg PO QPM 10/15/17 [History Confirmed 10/15/17] PMH/Surg Hx/FS Hx/Imm Hx Previously Healthy: Yes - Surgical History Surgical History: Yes Surgery Procedure, Year, and Place: HYSTERECTMY; LSP LAMINECTOMY; RIGHT RENAL TRANSPLANT; BILAT CATARACT SURGERY; SQUAMOUS CELL REMOVAL - Family History Known Family History: Positive: Cardiac Disease - CAD to sister Family History: no reported cardio vascular issues reported - Social History Alcohol Use: Occasionally Substance Use Type: None Smoking Status (MU): Former Smoker Type: Cigarettes Length of Time of Smoking/Using Tobacco: 15 years Have You Smoked in the Last Year: No Review of Systems Constitutional: Negative Skin: Negative Eyes: Negative ENT: Negative Respiratory: Negative Cardiovascular: Negative Gastrointestinal: Other - sensation of FB stuck in esophagus Genitourinary: Negative Motor: Negative Neurovascular: Negative Musculoskeletal: Negative Neurological: Negative Psychological: Negative All Other Systems Reviewed And Are Negative: Yes Physical Exam Triage Information Reviewed: Yes Appearance: Well-Appearing Vital Signs: Initial Vital Signs Temp 36.7 C 10/15/17 18:32 Pulse 88 10/15/17 18:32 Resp 16 10/15/17 18:32 BP 165/79 10/15/17 18:32 Pulse Ox 99 10/15/17 18:32 Vital Signs Reviewed: Yes Eye Exam: Normal ENT Exam: Normal Dental Exam: Normal Neck: Positive: Supple, Other: - patent trachea, good air entry B/L Respiratory Exam: Normal Respiratory: Positive: Lungs clear Cardiovascular Exam: Normal Abdominal Exam: Normal Musculoskeletal Exam: Normal Neurological Exam: Normal Psychological Exam: Normal Skin Exam: Normal Course/Dx - Course Course Of Treatment: Soft tissue neck XR neg for FB - Differential Dx - Multi-Symptom Provider Diagnoses: Dysphagia (resolved) Discharge - Sign-Out/Discharge Documenting (check all that apply): Discharge/Admit/Transfer - Discharge Plan Condition: Stable Disposition: HOME Patient Education Materials: Esophageal Foreign Body (ED) Referrals: Anselmo Smith MD [Primary Care Provider] - - Billing Disposition and Condition Condition: STABLE Disposition: HOME
== END 2017-10-15 20:30 | disposition home or self-care (01) ==
LOC: UCEAST 18:23
DX: R13.10 Dysphagia, unspecified (principal); Z88.1 Allergy status to other antibiotic agents; Z88.0 Allergy status to penicillin; Z88.8 Allergy status to other drugs, medicaments and biological substances; Z87.891 Personal history of nicotine dependence
CPT/HCPCS: 70360; 99211; G0463

== ENCOUNTER 2019-03-14 02:22 | Observation (INO) | payer MEDICARE ==
--- OUTSIDE RECORDS SUMMARY | 2019-03-14 02:28 | XMS REPORT | Continuity of Care Document ---
:1935 External Reference #:[id number] Author Name Rey Barrow M.D. Address [address] [place] [address] Care Team Providers Name Role Phone Sha Toscano M.D. - Neurology Care Team Information Toy Assembly Supervisor Anselmo Smith M.D. - Endocrinology, Care Team Information Toy Assembly Supervisor [phone] Diabetes & Metabolism Yadiel Salas M.D. - Nephrology Care Team Information Toy Assembly Supervisor Thong Diaz III, M.D. - Care Team Information Toy Assembly Supervisor [phone] Ophthalmology Yousuf Christensen M.D. - Cardiovascular Care Team Information Toy Assembly Supervisor Disease Yadiel Nieto M.D. - Care Team Information Toy Assembly Supervisor [phone] Ophthalmology Problems Active Problems Provider Date Type 1 diabetes mellitus Onset: Essential hypertension Onset: Arthritis Onset: Corneal edema Christie Henry O.D. Onset: 10/24/2014 Band-shaped keratopathy Christie Henry O.D. Onset: 10/24/2014 Ocular hypertension Christie Henry O.D. Onset: 10/24/2014 Vitreous degeneration Christie Henry O.D. Onset: 06/26/2015 Presence of intraocular lens Christie Henry O.D. Onset: 06/26/2015 Hypermetropia Christie Henry O.D. Onset: 06/26/2015 Regular astigmatism Christie Henry O.D. Onset: 06/26/2015 Myopia Christie Henry O.D. Onset: 06/26/2015 Presbyopia Christie Henry O.D. Onset: 06/26/2015 Round hole of retina without detachment Christie Henry O.D. Onset: 2015 Heart failure Onset: Decreased cardiac ejection fraction Onset: Vitreous hemorrhage Christie Cordero O.D. Onset: 03/16/2016 Congestive heart failure Onset: Glaucoma Christie Cordero O.D. Onset: 05/27/2017 Hemorrhage of iris AND/OR ciliary body Christie Cordero O.D. Onset: 06/02/2017 Diabetes mellitus due to underlying Lakeisha Sellers O.D. 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 Onset: 09/02/2017 Conjunctival hemorrhage Christie Cordero O.D. Onset: 01/07/2018 Chronic allergic conjunctivitis Christie Cordero O.D. Onset: 02/23/2018 Social History Type Date Description Comments Sex Unknown ETOH Use Occasionally consumes alcohol Tobacco Use Start: Unknown End: Unknown Patient is a former smoker Smoking Status Reviewed: 02/16/19 Patient is a former smoker Allergies, Adverse Reactions, Alerts Active Allergies Reaction Severity Comments Date Penicillins 10/24/2014 Bactrim 10/24/2014 Ciprofloxacin 04/27/2017 Medications Active Medications SIG Qnty Indications Ordering Provider Date Refresh daily both eyes Lakeisha Lai 04/04/2018 1.4-0.6% Solution Lilo Sellers Prednisone Unknown 2.5mg Tablets Azathioprine Unknown 50mg Tablets Humalog Unknown 100Unit/ML Solution Lantus Unknown 100Unit/ML Solution Torsemide Take One Tablet Unknown 10mg Tablets By Mouth Twice A Day Metoprolol Succinate ER Unknown 25mg Tablets ER 24HR Immunizations Description No Information Available Vital Signs Description No Information Available Results Description No Information Available Procedures Date Code Description Status 11/29/2018 90277 Scanning Computerized Opthalmic Diagnostic Posterior Seg Completed Retina 11/29/2018 53570 Est Patient Intermediate Exam Completed 09/28/2018 13461 Est Patient Intermediate Exam Completed Medical Devices Description No Information Available Encounters Type Date Location Provider Dx Diagnosis Office Visit 10/11/2018 Rey Granados, H18.423 Band keratopathy, 12:30p richmond APONTE M.D. bilateral Office Visit 08/25/2018 Rey Granados, H18.423 Band keratopathy, 2:15p richmond APONTE M.D. bilateral H52.4 Presbyopia Assessments Date Code Description Provider 02/16/2019 Giselle Band keratopathy, bilateral Rey Barrow M.D. 11/29/2018 H18.423 Band keratopathy, bilateral Rey Barrow M.D. 11/29/2018 E08.3593 Diabetes mellitus due to underlying Rey Barrow M.D. condition with prolifera 11/09/2018 Z76.0 Encounter for issue of repeat prescription Rey Barrow M.D. 11/09/2018 H18.423 Band keratopathy, bilateral Rey Barrow M.D. 10/11/2018 H18.423 Band keratopathy, bilateral Rey Barrow M.D. 09/28/2018 H18.423 Band bran, bilateral Rey Barrow M.D. 08/25/2018 H18.423 Band bran, bilateral Rey Barrow M.D. 08/25/2018 H52.4 Presbyopia Rey Barrow M.D. Plan of Treatment Future Appointment(s):06/13/2019 10:30 am - Rey Barrow M.D. at Yadiel Olea MD, 02/16/2019 - Rey Barrow M.D.H18.423 Band keratopathy, bilateralComments:Smoking can increase the risk of developing or worsening any eye related disease, as well as affect your overall health. If you are a smoker , we strongly recommend that you quit.If you are not a smoker, we strongly recommend that you do not start. KEEP SCHEDULED APPOINTMENTS WITH DR. NIETO AND CHARLES. WE WILL WAIT AND SEE WHAT DR. NIETO'S PLAN WILL BE , BEFORE WE CHANGE YOUR GLASSES PRESCRIPTION. TRY TO USE OVER THE COUNTER ARTIFICAL TEARS 2-3 TIMES A DAY TO BOTH EYES .Follow up: SCHEDULED At your next visit, we are not planning to dilate your eyes. However, if you have any changes in your vision or new symptoms, there are certain situations that require us to dilate your eyes. If Dr. Barrow requests any additional testing , that may require extra time. If you have any questions before your next appointment, please call our office at . Functional Status Description No Information Available Mental Status Description No Information Available Referrals Refer to Dr Reason for Referral Status Appt Date Yadiel Nieto M.D. BAND KERATOPATHY OU Closed 02/01/2019 [facility] [address] [place] [id number] [phone]
--- OUTSIDE RECORDS SUMMARY | 2019-03-14 02:28 | XMS REPORT | Continuity of Care Document ---
:1935 External Reference #:[id number] Author Name Dayo Welsh M.D. (transmitted by agent of provider Kathi Tatum) Address [address] [facility] [place] [address] Care Team Providers Name Role Phone Anselmo Smith MD - Endocrinology, Care Team Information Belt Weaver Diabetes & Metabolism Problems Active Problems Provider Date Coronary arteriosclerosis Yousuf Christensen M.D. Onset: 07/21/2013 Essential hypertension Yousuf Christensen M.D. Onset: 07/21/2013 Synovitis and tenosynovitis Domenico Pope M.D. Onset: 08/06/2015 Strain of left Achilles tendon, subsequent Domenico Pope M.D. Onset: 2015 encounter Cellulitis of left lower limb Domenico Pope M.D. Onset: 08/13/2015 Low back pain Deejay Chapman M.D. Onset: 01/31/2016 Prepatellar bursitis Dayo Welsh M.D. Onset: 11/23/2016 Social History Type Date Description Comments Sex Unknown Cigarette Use Pack Years - 15 Tobacco Use Start: Unknown Quit in 1970 ETOH Use Rarely consumes wine Tobacco Use Start: Unknown End: Patient is a former smoker Unknown Recreational Drug Use Denies Drug Use Tobacco Use Start: Unknown Light tobacco smoker (10 or fewer cigarettes/day) Smoking Status Reviewed: 03/08/19 Light tobacco smoker (10 or fewer cigarettes/day) Exercise Type/Frequency Exercises regularly Allergies, Adverse Reactions, Alerts Active Allergies Reaction Severity Comments Date Penicillin rash 09/08/2006 Bactrim DS rash 09/08/2006 Accupril cough, edema, fatigue, 09/08/2006 dyspnea. Cipro 01/30/2014 Macrolides GI upset 05/24/2015 Metoprolol fatigue 05/24/2015 Bisoprolol Severe edema 09/26/2015 Clindamycin Nausea and Vomiting 05/08/2016 Oxycodone Nausea, vomiting 09/30/2018 Candesartan fatigue 09/30/2018 Coreg abdominal gassiness, 09/30/2018 fatigue Nifedipine lower extremity swelling, 09/30/2018 increased heart rate Plavix 09/30/2018 Valsartan fatigue 09/30/2018 Spironolactone bad reaction 09/30/2018 Medications Active Medications SIG Qnty Indications Ordering Date Provider Lisinopril 1 by mouth every 90tabs Tiburcio Edmonds, 01/04/2019 5mg Tablets day DO FACC Centrum 1 po qd prn Lamont Ragland 08/31/2008 Tablets Corin De León Humalog sliding scale 3vials Unknown 100Unit/ML Solution Lantus 5 units Qam 1MonthSu Unknown as Directed Solution Prednisone 1 tablet po Unknown 2.5mg daily Tablets Refresh Tears used both eyes Unknown every hour as needed Torsemide 1/2 - 1 tablet 90tabs Tiburcio Edmonds, 10mg Tablets by mouth daily DO FACC if weight is >126 lbs Rolaids 1 tab daily prn Unknown 550-110mg Chewtabs Azathioprine 1 by mouth one Unknown 50mg time per day Tablets Metoprolol Succinate 1/2 by mouth 45tabs Tiburcio Edmonds, ER every other day DO FACC 25mg Tablets ER 24HR and extra 1/2 tab prn [address] Chlor[address] into both Unknown (Hypertonic) eyes as night Medications Administered in Office Medication SIG Qnty Indications Ordering Provider Date Depomedrol 40MG Dayo Welsh M.D. 11/23/2016 Injection Inj, Regadenoson, 0.1 MG Yousuf Christensen M.D. 10/25/2014 Injection Technetium TC 99M Tetrofosmin, Yousuf Christensen M.D. 10/25/2014 Per Unit Dose Up To 40 Millicuries Injection Immunizations Description No Information Available Vital Signs Date Vital Result Comment 03/08/2019 11:16am Height 63.5 inches 5'3.50" Weight 126.25 lb Heart Rate 70 /min BP Systolic 130 mmHg BP Diastolic 78 mmHg Respiratory Rate 16 /min Body Temperature 98.2 F Pain Level 4 BMI (Body Mass Index) 22.0 kg/m2 01/04/2019 11:19am Height 63 inches 5'3" Weight 128.25 lb with out shoes Heart Rate 62 /min BP Systolic Sitting 130 mmHg Lue reg cuff BP Diastolic Sitting 76 mmHg Lue reg cuff BP Systolic Standing 130 mmHg Lue BP Diastolic Standing 72 mmHg Lue Respiratory Rate 16 /min BMI (Body Mass Index) 22.7 kg/m2 Results Test Date Facility Test Result H/L Range Note Basic Metabolic 12/27/2018 [facility] Sodium 143 mmol/L Normal 135-[address] [place] [address] [phone] Potassium 4.0 mmol/L Normal 3.5-5.0 Chloride 105 mmol/L Normal 101-111 Co2 Carbon Dioxide 29 mmol/L Normal 22-32 Anion Gap 9 mmol/L Normal 2-11 Glucose 100 mg/dL Normal 70-100 Blood Urea Nitrogen 27 mg/dL High 6-24 Creatinine 0.96 mg/dL High 0.51-0.95 BUN/Creatinine Ratio 28.1 High 8-20 Calcium 9.3 mg/dL Normal 8.6-10.3 Egfr Non- 55.4 >60 Egfr 67.0 >60 1 Laboratory test 12/27/2018 [facility] B-Type > 1300 High <= [address] Natriuretic pg/[place] [address] Peptide BNP [phone] Basic Metabolic 11/08/2018 [facility] Sodium 140 Normal 135- [address] mmol/[place] [address] [phone] Potassium 4.0 mmol/L Normal 3.5-5.0 Chloride 102 mmol/L Normal 101-111 Co2 Carbon Dioxide 33 mmol/L High 22-32 Anion Gap 5 mmol/L Normal 2-11 Glucose 152 mg/dL High 70-100 Blood Urea Nitrogen 31 mg/dL High 6-24 Creatinine 0.94 mg/dL Normal 0.51-0.95 BUN/Creatinine Ratio 33.0 High 8-20 Calcium 9.7 mg/dL Normal 8.6-10.3 Egfr Non- 56.7 >60 Egfr 68.6 >60 2 Laboratory test 11/08/2018 [facility] B-Type > 1300 High <= 100 [address] Natriuretic pg/[place] [address] Peptide BNP [phone] Comp Metabolic 10/05/2018 [facility] Sodium 141 Normal 135- [address] mmol/[place] [address] [phone] Potassium 3.9 mmol/L Normal 3.5-5.0 Chloride 100 mmol/L Low 101-111 Co2 Carbon Dioxide 35 mmol/L High 22-32 Anion Gap 6 mmol/L Normal 2-11 Glucose 205 mg/dL High 70-100 Blood Urea Nitrogen 35 mg/dL High 6-24 Creatinine 0.98 mg/dL High 0.51-0.95 BUN/Creatinine Ratio 35.7 High 8-20 Calcium 9.5 mg/dL Normal 8.6-10.3 Total Protein 6.9 g/dL Normal 6.4-8.9 Albumin 3.9 g/dL Normal 3.2-5.2 Globulin 3.0 g/dL Normal 2-4 Albumin/Globulin Ratio 1.3 Normal 1-3 Total Bilirubin 1.00 mg/dL Normal 0.2-1.0 Alkaline Phosphatase 69 U/L Normal 34-104 Alt 13 U/L Normal 7-52 Ast 26 U/L Normal 13-39 Egfr Non- 54.1 >60 Egfr 65.4 >60 4 Laboratory test 10/05/2018 [facility] Magnesium 2.0 mg/dL Normal 1.9-2.[address] [place] [address] [phone] NT-Pro B-Type Natriuretic Pep 7637 pg/mL Abnormal <=263 5 1 Because ethnic data is not always readily available, this report includes an eGFR for both -Americans and non- Americans. The National Kidney Disease Education Program (NKDEP) does not endorse the use of the MDRD equation for patients that are not between the ages of 18 and 70, are , have extremes of body size, muscle mass, or nutritional status, or are non- or non-. According to the National Kidney Foundation, irrespective of diagnosis, the stage of the disease is based on the level of kidney function: Stage Description GFR(mL/min/1.73 m(2)) 1 Kidney damage with normal or decreased GFR 90 2 Kidney damage with mild decrease in GFR 60-89 3 Moderate decrease in GFR 30-59 4 Severe decrease in GFR 15-29 5 Kidney failure <15 (or dialysis) 2 Because ethnic data is not always readily available, this report includes an eGFR for both -Americans and non- Americans. The National Kidney Disease Education Program (NKDEP) does not endorse the use of the MDRD equation for patients that are not between the ages of 18 and 70, are , have extremes of body size, muscle mass, or nutritional status, or are non- or non-. According to the National Kidney Foundation, irrespective of diagnosis, the stage of the disease is based on the level of kidney function: Stage Description GFR(mL/min/1.73 m(2)) 1 Kidney damage with normal or decreased GFR 90 2 Kidney damage with mild decrease in GFR 60-89 3 Moderate decrease in GFR 30-59 4 Severe decrease in GFR 15-29 5 Kidney failure <15 (or dialysis) 3 ORDERED:03/10/18 :09/08/18 STANDING ORDER-PRN CC: CC. ROJELIO CC, HALLE 4 Because ethnic data is not always readily available, this report includes an eGFR for both -Americans and non- Americans. The National Kidney Disease Education Program (NKDEP) does not endorse the use of the MDRD equation for patients that are not between the ages of 18 and 70, are , have extremes of body size, muscle mass, or nutritional status, or are non- or non-. According to the National Kidney Foundation, irrespective of diagnosis, the stage of the disease is based on the level of kidney function: Stage Description GFR(mL/min/1.73 m(2)) 1 Kidney damage with normal or decreased GFR 90 2 Kidney damage with mild decrease in GFR 60-89 3 Moderate decrease in GFR 30-59 4 Severe decrease in GFR 15-29 5 Kidney failure <15 (or dialysis) 5 NT-proBNP values less than 300 pg/mL have a 99% negative predictive value for excluding acute congestive heart failure. A cutoff of 1200 pg/mL for patients with an eGFR<60 yields a diagnostic sensitivity and specificity of 89% and 72% for acute congestive heart failure. A diagnostic NT-proBNP cutoff of 1800 pg/mL has been suggested in adults over 75 years of age in the absence of renal failure. Test Performed by: [address] [address] Procedures Date Code Description Status 01/16/2019 74070 ECHO Transthoracic, Real-Time 2D With Doppler And Completed Color Flow 01/16/2019 19454 ECHO Transthoracic, Real-Time 2D With Doppler And Completed Color Flow 12/22/2018 95264 Removal Devitalization Tissue Wound Less Than Equal 20 Completed Square CM 12/15/2018 92271 Removal Devitalization Tissue Wound Less Than Equal 20 Completed Square CM 12/01/2018 70785 Removal Devitalization Tissue Wound Less Than Equal 20 Completed Square CM 11/22/2018 36081 Removal Devitalization Tissue Wound Less Than Equal 20 Completed Square CM 11/15/2018 98538 Removal Devitalization Tissue Wound Less Than Equal 20 Completed Square CM 11/08/2018 36949 Removal Devitalization Tissue Wound Less Than Equal 20 Completed Square CM 09/15/2018 85552 Holter Monitor Review (24 hr)dr review & interp only Completed 09/13/2018 70741 ECG Monitor/Recording W/Visual Superimposition Completed Scanning 06/02/2017 [id number] Diabetic Retinal Eye Exam Completed Medical Devices Description No Information Available Encounters Type Date Location Provider Dx Diagnosis Office Visit 01/10/2019 Wound Care Deejay Ragland S81.801D Unspecified open 2:15p Center AT [facility] Corin Davidson wound, right lower leg, subs encntr S81.802D Unspecified open wound, left lower leg, subsequent encounter E11.9 Type 2 diabetes mellitus without complications I10 Essential (primary) hypertension Office Visit 01/04/2019 11:20a [facility] Tiburcio Lovett I50.22 Chronic systolic Of Information Technology Program Manager EdmondsDO (congestive) heart FACC failure I49.3 Ventricular premature depolarization Z94.0 Kidney transplant status E10.8 Type 1 diabetes mellitus with unspecified complications Office Visit 11/08/2018 10:30a Wound Care Deejay Ragland S81.801A Unspecified open Center AT [facility] Corin Davidson wound, right lower leg, initial encounter S81.802A Unspecified open wound, left lower leg, initial encounter E11.622 Type 2 diabetes mellitus with other skin ulcer E11.21 Type 2 diabetes mellitus with diabetic nephropathy Z94.0 Kidney transplant status Office Visit 09/30/2018 4:00p [facility] Tiburcio PotterJimmy I50.22 Chronic systolic Of Information Technology Program Manager Grey, DO (congestive) heart FACC failure Z95.810 Presence of automatic (implantable) cardiac defibrillator I49.3 Ventricular premature depolarization I49.1 Atrial premature depolarization Assessments Date Code Description Provider 03/08/2019 S80.211A Abrasion, right knee, initial encounter Dayo Welsh M.D. 03/08/2019 S76.111A Strain of right quadriceps muscle, Dayo Welsh M.D. fascia and tendon, initial encounter 03/08/2019 M70.41 Prepatellar bursitis, right knee Dayo Welsh M.D. 01/16/2019 I50.22 Chronic systolic (congestive) heart Tiburcio SJimmy Edmonds, DO FACC failure 01/16/2019 I50.22 Chronic systolic (congestive) heart Traveling ECHO 2 failure 01/10/2019 S81.801D Unspecified open wound, right lower leg, Deejay Davidson M.D. subsequent encounter 01/10/2019 S81.802D Unspecified open wound, left lower leg, Deejay Davidson M.D. subsequent encounter 01/10/2019 E11.9 Type 2 diabetes mellitus without Deejay Davidson M.D. complications 01/10/2019 I10 Essential (primary) hypertension Deejay Davidson M.D. 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 foot w unsp severity 12/22/2018 L97.519 Non-prs chronic ulcer oth prt right foot Deejay Davidson M.D. w unsp severity 12/22/2018 E11.622 Type 2 diabetes mellitus with other skin Deejay Davidson M.D. ulcer 12/22/2018 S81.801D Unspecified open wound, right lower leg, Deejay Davidson M.D. subsequent encounte 12/22/2018 S81.802D Unspecified open wound, left lower leg, Deejay Davidson M.D. subsequent encounter 12/22/2018 Z94.0 Kidney transplant status Deejay Davidson M.D. 12/15/2018 S81.801D Unspecified open wound, right lower leg, Deejay Davidson M.D. subsequent encounte 12/15/2018 S81.802D Unspecified open wound, left lower leg, Deejay Davidson M.D. subsequent encounter 12/01/2018 S81.801D Unspecified open wound, right lower leg, Deejay Davidson M.D. subsequent encounte 12/01/2018 S81.802D Unspecified open wound, left lower leg, Deejay Davidson M.D. subsequent encounter 12/01/2018 E11.622 Type 2 diabetes mellitus with other skin Deejay Davidson M.D. ulcer 12/01/2018 E11.21 Type 2 diabetes mellitus with diabetic Deejay Davidson M.D. nephropathy 11/22/2018 S81.802D Unspecified open wound, left lower leg, Deejay Davidson M.D. subsequent encounter 11/22/2018 S81.801D Unspecified open wound, right lower leg, Deejay Davidson M.D. 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 nephropathy 11/15/2018 S81.801D Unspecified open wound, right lower leg, Deejay Davidson M.D. subsequent encounte 11/15/2018 S81.802D Unspecified open wound, left lower leg, Deejay Davidson M.D. subsequent encounter 11/15/2018 E11.622 Type 2 diabetes mellitus with other skin Deejay Davidson M.D. 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 nephropathy 11/08/2018 S81.801A Unspecified open wound, right lower leg, Deejay Davidson M.D. initial encounter 11/08/2018 S81.802A Unspecified open wound, left lower leg, Deejay Davidson M.D. initial encounter 11/08/2018 E11.622 Type 2 diabetes mellitus with other skin Deejay Davidson M.D. 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 nephropathy 11/08/2018 Z94.0 Kidney transplant status Deejay Davidson M.D. 09/30/2018 I50.22 Chronic systolic (congestive) heart Tiburcio Edmonds, DO [facility] failure 09/30/2018 Z95.810 Presence of automatic (implantable) Tiburcio Edmonds DO [facility] cardiac defibrillator 09/30/2018 I49.3 Ventricular premature depolarization Tiburcio Edmonds DO [facility] 09/30/2018 I49.1 Atrial premature depolarization Tiburcio Edmonds DO [facility] 09/15/2018 R00.2 Palpitations Yousuf Christensen M.D. 09/15/2018 I49.3 Ventricular premature depolarization Yousuf Christensen M.D. 09/15/2018 I49.1 Atrial premature depolarization Yousuf Christensen M.D. 09/13/2018 R00.2 Palpitations Nurse Visit IC 09/13/2018 I49.3 Ventricular premature depolarization Nurse Visit IC 09/13/2018 I49.1 Atrial premature depolarization Nurse Visit IC Plan of Treatment Future Appointment(s):03/29/2019 10:30 am - Dayo Welsh M.D. at [facility] at [facility]/14/2019 10:30 am - Ica Pacer Schedule at [facility]03/30/2019 10:00 am - Johnson Gomez MD at [facility] [id number] /02/2019 - Dayo Welsh M.D.S80.211A Abrasion, right knee, initial encounterFollow up:Follow up: 03/27 If doing poorly, fevers, chills, increasing pain and redness then call to be seen here OR go to the Emergency room Keep the abrasion clean soap and water and neosporin OK to checkregarding keflex which would be used as a precaution Walking activities and some knee bending are OK. Use a cane or ski pole is poccgcD77.111A Strain of right quadriceps muscle, fascia and tendon, initial qilwvaapeK74.41 Prepatellar bursitis, right knee Functional Status Description No Information Available Mental Status Description No Information Available Referrals Description No Information Available
[2019-03-14 02:55] LABS: ABS Eosinophils 0.2 10^3/ul (0-0.6); ABS Lymphocytes 1.6 10^3/ul (1.0-4.8); ABS Monocytes 0.7 10^3/ul (0-0.8); ABS Neutrophils 3.9 10^3/ul (1.5-7.7); Eosinophil % 2.7 %; Hematocrit 41 % (35-47); Hemoglobin 13.3 g/dL (12.0-16.0); Lymphocyte % 24.9 %; Mean Corpuscular HGB Conc 33 g/dL (31-36); Mean Corpuscular Hemoglobin 31 pg (27-31); Mean Corpuscular Volume 93 fL (80-97); Nucleated Red Blood Cells % 0.1; Platelet Count 161 10^3/uL (150-450); Red Blood Count 4.37 10^6 /uL (3.70-4.87); Red Cell Distribution Width 16 % (10-15); White Blood Count 6.4 10^3/uL (3.5-10.8)
[2019-03-14 03:12] LABS: ALT 17 U/L (7-52); AST 30 U/L (13-39); Albumin 4.1 g/dL (3.2-5.2); Albumin/Globulin Ratio 1.2 (1-3); Alkaline Phosphatase 74 U/L (34-104); Anion Gap 6 mmol/L (2-11); Blood Urea Nitrogen 36 mg/dL (6-24); CO2 Carbon Dioxide 33 mmol/L (22-32); Calcium 9.7 mg/dL (8.6-10.3); Chloride 98 mmol/L (101-111); EGFR African American 59.8 (>60); EGFR Non-African American 49.4 (>60); Globulin 3.5 g/dL (2-4); Glucose 199 mg/dL (70-100); Potassium 3.7 mmol/L (3.5-5.0); Sodium 137 mmol/L (135-145); Total Protein 7.6 g/dL (6.4-8.9)
[2019-03-14] MEDS ORDERED: Aspirin 81 mg CHEW TAB* 81 MG TAB.CHEW PO ONE (03:13)
[2019-03-14 03:15] LABS: INR 1.03 (0.82-1.09)
[2019-03-14 03:20] LABS: Troponin I 0.05 ng/mL (<0.04)
[2019-03-14] MEDS: Nitroglycerin TAB 0.4 MG* 0.4 MG TAB SL ONE ×4 (03:24→03:54)
--- NOTE | 2019-03-14 03:43 | ED ---
HPI Chest Pain - HPI Summary HPI Summary: Pt is an 83 y/o F presenting to the ED with a chief complaint of L-sided chest discomfort initially onset a couple of days ago in her shoulder. She states she has had a prior AZ with strange symptoms, so she decided to come in tonight. The pain radiates to the L side of her ribs, she notes she has been burping more frequently, and recently had a cough. She denies nausea or diaphoresis. She notes hx of DM, CHF, AICD, HTN, and is currently on immunosuppressants for kidney transplant. - History of Current Complaint Chief Complaint: EDChestPainROMI Time Seen by Provider: 03/14/19 02:46 Hx Obtained From: Patient Onset/Duration: Started Days Ago, Still Present Timing: Intermittent, Lasting Hours Initial Severity: Mild Current Severity: Mild Pain Intensity: 3 Pain Scale Used: 0-10 Numeric Chest Pain Location: Left Anterior Chest Pain Radiates: Yes Chest Pain Radiates To:: Other - L ribs Aggravating Factor(s): Nothing Alleviating Factor(s): Nothing Associated Signs and Symptoms: Positive: Chest Pain, Cough, Other: - burping. Negative: Diaphoresis, Nausea - Allergy/Home Medications Allergies/Adverse Reactions: Allergies Allergy/AdvReac Type Severity Reaction Status Date / Time clindamycin Allergy Intermediate GI Upset Verified 03/14/19 02:37 carvedilol [From Coreg] Allergy Fatigue Verified 03/14/19 02:37 cephalexin [From Keflex] Allergy Stomach Verified 03/14/19 02:37 Cramps ciprofloxacin Allergy See Comment Verified 03/14/19 02:37 clopidogrel [From Plavix] Allergy Fatigue Verified 03/14/19 02:37 metoprolol Allergy Fatigue Verified 03/14/19 02:37 omeprazole Allergy Abdominal Verified 03/14/19 02:37 Pain Penicillins Allergy Airway Verified 03/14/19 02:37 Obstruction quinapril [From Accupril] Allergy Coughing Verified 03/14/19 02:37 sulfamethoxazole Allergy Rash Verified 03/14/19 02:37 [From Bactrim] trimethoprim [From Bactrim] Allergy Rash Verified 03/14/19 02:37 Home Medications: Home Medications Metoprolol Tartrate TAB* [Lopressor TAB*] 12.5 mg PO EVERY OTHER DAY 03/14/19 [ History Confirmed 03/14/19] Torsemide TAB* 25 mg PO DAILY 03/14/19 [History Confirmed 03/14/19] PMH/Surg Hx/FS Hx/Imm Hx Previously Healthy: Yes Endocrine/Hematology History: Reports: Hx Diabetes Cardiovascular History: Reports: Hx Congenital Heart Disease, Hx Congestive Heart Failure, Hx Hypertension, Hx Myocardial Infarction, Hx Pacemaker/ICD - BIVANTRICULATOR MAR 31 2016 Denies: Hx Atrial Fibrillation Respiratory History: Denies: Hx Asthma GI History: Reports: Hx Gastroesophageal Reflux Disease History: Reports: Hx Renal Disease - transplant Musculoskeletal History: Denies: Hx Osteoporosis Sensory History: Reports: Hx Cataracts Denies: Hx Hearing Aid Opthamlomology History: Reports: Hx Cataracts Psychiatric History: Denies: Hx Panic Disorder - Cancer History Cancer Type, Location and Year: skin - Surgical History Surgery Procedure, Year, and Place: HYSTERECTMY; LSP LAMINECTOMY; RIGHT RENAL TRANSPLANT; BILAT CATARACT SURGERY; SQUAMOUS CELL REMOVAL Hx Anesthesia Reactions: No Infectious Disease History: No Infectious Disease History: Denies: History Other Infectious Disease, Traveled Outside the [place] in Last 30 Days - Family History Known Family History: Positive: Cardiac Disease - CAD to sister Family History: no reported cardio vascular issues reported - Social History Alcohol Use: Occasionally Hx Substance Use: No Substance Use Type: Reports: None Hx Tobacco Use: No Smoking Status (MU): Former Smoker Type: Cigarettes Length of Time of Smoking/Using Tobacco: 15 years Have You Smoked in the Last Year: No Review of Systems Negative: Skin Diaphoresis Positive: Chest Pain Positive: Cough Negative: Nausea All Other Systems Reviewed And Are Negative: Yes Physical Exam - Summary Physical Exam Summary: Constitutional: Well-developed, Well-nourished, Alert. (-) Distressed Skin: Warm, Dry HENT: Normocephalic; Atraumatic Eyes: Conjunctiva normal Neck: Musculoskeletal ROM normal neck. (-) JVD, (-) Stridor, (-) Tracheal deviation Cardio: Rhythm regular, rate normal, Heart sounds normal; Intact distal pulses; Radial pulses are 2+ and symmetric. (-) Murmur Pulmonary/Chest wall: Effort normal. (-) Respiratory distress, (-) Wheezes, (-) Rales Abd: Soft, (-) tenderness, (-) Distension, (-) Guarding, (-) Rebound Musculoskeletal: (-) Edema Lymph: (-) Cervical adenopathy Neuro: Alert, Oriented x3 Psych: Mood and affect Normal Triage Information Reviewed: Yes Vital Signs On Initial Exam: Initial Vitals Temp Pulse Resp BP Pulse Ox 98.7 F 80 15 0/0 100 03/14/19 02:34 03/14/19 02:34 03/14/19 02:34 03/14/19 02:34 03/14/19 02:34 Vital Signs Reviewed: Yes Procedures - Sedation Patient Received Moderate/Deep Sedation with Procedure: No Diagnostics - Vital Signs Vital Signs Temp Pulse Resp BP Pulse Ox 03/14/19 03:20 17 169/83 03/14/19 03:00 71 19 100 03/14/19 02:50 76 19 177/81 96 03/14/19 02:48 16 03/14/19 02:34 98.7 F 80 15 0/0 100 - Laboratory Lab Results: Lab Results 03/14/19 03/14/19 03/14/19 Range/Units 02:47 02:47 02:50 WBC 6.4 (3.5-10.8) 10^3/uL RBC 4.37 (3.70-4.87) 10^6 /uL Hgb 13.3 (12.0-16.0) g/dL Hct 41 (35-47) % MCV 93 (80-97) fL MCH 31 (27-31) pg MCHC 33 (31-36) g/dL RDW 16 H (10-15) % Plt Count 161 (150-450) 10^3/uL MPV 9.0 (7.4-10.4) fL Neut % (Auto) 60.3 % Lymph % (Auto) 24.9 % [place] % (Auto) 11.4 % Eos % (Auto) 2.7 % Baso % (Auto) 0.7 % Absolute Neuts (auto) 3.9 (1.5-7.7) 10^3/ul Absolute Lymphs (auto) 1.6 (1.0-4.8) 10^3/ul Absolute Monos (auto) 0.7 (0-0.8) 10^3/ul Absolute Eos (auto) 0.2 (0-0.6) 10^3/ul Absolute Basos (auto) 0.0 (0-0.2) 10^3/ul Absolute Nucleated RBC 0.0 10^3/ul Nucleated RBC % 0.1 INR (Anticoag Therapy) 1.03 (0.82-1.09) Sodium 137 (135-145) mmol/L Potassium 3.7 (3.5-5.0) mmol/L Chloride 98 L (101-111) mmol/L Carbon Dioxide 33 H (22-32) mmol/L Anion Gap 6 (2-11) mmol/L BUN 36 H (6-24) mg/dL Creatinine 1.06 H (0.51-0.95) mg/dL Est GFR ( Amer) 59.8 (>60) Est GFR (Non-Af Amer) 49.4 (>60) BUN/Creatinine Ratio 34.0 H (8-20) Glucose 199 H (70-100) mg/dL Calcium 9.7 (8.6-10.3) mg/dL Total Bilirubin 0.90 (0.2-1.0) mg/dL AST 30 (13-39) U/L ALT 17 (7-52) U/L Alkaline Phosphatase 74 (34-104) U/L Troponin I 0.05 H* (<0.04) ng/mL Total Protein 7.6 (6.4-8.9) g/dL Albumin 4.1 (3.2-5.2) g/dL Globulin 3.5 (2-4) g/dL Albumin/Globulin Ratio 1.2 (1-3) Result Diagrams: 03/14/19 02:47 03/14/19 02:50 Lab Statement: Any lab studies that have been ordered have been reviewed, and results considered in the medical decision making process. - Radiology CXR Radiology Interpretation Completed By: ED Physician Summary of Radiographic Findings: No acute process. Pending official radiology report. - EKG 226 Cardiac Rate: NL - 81bpm EKG Rhythm: Sinus Rhythm ST Segment: Non-Specific Ectopy: None EKG Comparison: Other Summary of EKG Findings: EKG at 022 shows NSR at 81bpm with ST elevation in v3 , ST depression in v5 and v6, T-wave inversion in aVL and lead I. T-wave inversion in lead I and ST elevation in v3 are new compared to EKG on 08/22/2016. Chest Pain Course/Dx - Course Course Of Treatment: Patient is here with vague left-sided chest pain that was similar her prior AZ per her. Patient had an EKG which showed new T-wave inversion in I and slight ST elevation in V3. Patient was given aspirin and nitroglycerin. Patient had negative chest x-ray. Patient's symptoms do not sound like PE. Patient had an elevated troponin of 0.05. Patient was admitted to medicine for further management and workup - Diagnoses Provider Diagnoses: NSTEMI (non-ST elevated myocardial infarction) - Provider Notifications Discussed Care Of Patient With: Delonte Simon Time Discussed With Above Provider: 03:49 Instructed by Provider To: Admit As Inpatient Discharge ED - Sign-Out/Discharge Documenting (check all that apply): Patient Departure - Discharge Plan Condition: Stable Disposition: ADMITTED TO [facility] Referrals: Anselmo Smith MD [Primary Care Provider] - - Billing Disposition and Condition Condition: STABLE Disposition: Admitted to [facility] - Attestation Statements Document Initiated by Scribe: Yes Documenting Scribe: Ana M Lopez Provider For Whom Perezibe is Documenting (Include Credential): Carlos Anders MD. Scribe Attestation: Ana M Rosas, scribed for Carlos Anders MD. on 03/14/19 at 0501. Scribe Documentation Reviewed: Yes Provider Attestation: The documentation as recorded by the scribeAna M accurately reflects the service I personally performed and the decisions made by me, Carlos Anders MD. Status of Scribe Document: Viewed Consult Consult: [id number] - I spoke with Dr. Simon who will be accepting the pt [place] [facility] [place]
[2019-03-14 06:27] LABS: Troponin I 0.05 ng/mL (<0.04)
[2019-03-14 08:36] LABS: Cholesterol 140 mg/dL; HDL Cholesterol 76.8 mg/dL; LDL Cholesterol 55 mg/dL; Triglycerides 43 mg/dL
[2019-03-14] MEDS ORDERED: Insulin GLARGINE(*) 1 UNITS UNIT SUBCUT SCH (09:00)
[2019-03-14] MEDS ORDERED: Metoprolol Tartrate TAB* 25 MG PO SCH (09:00)
[2019-03-14] MEDS ORDERED: predniSONE TAB* 5 MG PO SCH (09:00)
[2019-03-14 09:39] LABS: Troponin I 0.06 ng/mL (<0.04)
--- NOTE | 2019-03-14 10:24 | HP ---
CC: Dr. Anselmo Smith; Dr. Yousuf Christensen * ADMISSION HISTORY AND PHYSICAL: DATE OF ADMISSION: 03/14/19 PRIMARY CARE PHYSICIAN: Dr. Anselmo Smith. SPARERIBS TRIMMER: Dr. Yousuf Christensen. CHIEF COMPLAINT: Chest pain. HISTORY OF PRESENT ILLNESS: This is a 83-year-old female with past medical history of diabetes, hypertension, history of renal disease, status post transplant, on immunosuppressants, here due to chest pain. The patient stated that she has been having on and off chest pain for the last few days and noted to last about 10 seconds and she has also increased her activity recently due to packing and lifting some boxes. She did have a mild TN many years ago, so got concerned and came into the ER. Otherwise, she also had some accompanying nausea. The pain itself only lasted about 10 seconds, was noted to be in the left side of the chest and also in her arms, though which she thought was due to packing. She otherwise denies any accompanying palpitations, any shortness of breath, any other dizziness, although she does have some chronic dizziness due to her use of torsemide. No other fever, chills, or cough. PAST MEDICAL HISTORY: She has had type 1 diabetes, which was diagnosed at her gestational time and has been well controlled, history of hypertension; renal disease, which was thought to be due to diabetic complication, status post 11 months of peritoneal dialysis and status post renal transplant in 1989, which is still working very well; history of congestive heart failure, on diuretic therapy, last EF was noted to be less than 20%; status post AICD replacement; gastroesophageal reflux disease. She is also hard of hearing and is scheduled for hearing testing. Past medical history also includes history of coronary disease, status post small TN, cardiac catheterization in 2015 revealed a maximal lesion of 60% on the D1 ostial, did not have any stenting, also noted to have some mild pulmonary hypertension at that point. PAST SURGICAL HISTORY: Include a renal transplant in 1989, lumbar laminectomy in 2007, cardiac catheterization multiple episodes, but never had any stenting, most recent one being June 2015 and history of AICD placement in March 2018 for low EF. HOME MEDICATIONS: 1. The patient is on prednisone 2.5 mg oral daily. 2. Azathioprine 50 mg oral daily. 3. Torsemide 25 mg oral daily. 4. Metoprolol 12.5 mg oral every other day. 5. Humalog 3 units subcutaneous daily. 6. Lantus 3 units every morning. ALLERGIES: The patient is documented to have allergies to CLINDAMYCIN, CARVEDILOL, KEFLEX, CIPROFLOXACIN PLAVIX, METOPROLOL, OMEPRAZOLE, PENICILLIN, QUINAPRIL, BACTRIM. FAMILY HISTORY: Noncontributory at her age of 83. SOCIAL HISTORY: The patient lives with her . He had a history of smoking, but quit in 1969; has very little alcohol use due to drug restrictions and denies any other drug abuse. Lives with her Rolando who is her healthcare proxy and the patient is also full code. REVIEW OF SYSTEMS: A 14-point review of systems did not reveal any new information other than what is mentioned in the HPI. PHYSICAL EXAMINATION GENERAL: The patient is awake, alert and oriented x3, not noted to be in any acute distress. VITAL SIGNS: In the ER, BP was noted to be 153/82, heart rate 61, respiration rate 14, saturating 95% on room air, temperature 98.7. HEAD AND NECK: Atraumatic, normocephalic. Bilateral pupils were reactive. Oral mucosa was moist. Neck supple. No jugular venous distention. LUNGS: Clear to auscultation bilaterally. No wheezing, rhonchi, or rales. HEART: S1, S2. Regular rate and rhythm. ABDOMEN: Soft, nontender, nondistended. EXTREMITIES: No cyanosis, clubbing, or edema. DIAGNOSTIC DATA/LAB DATA: CBC was unremarkable. Coagulation profile unremarkable. Comprehensive metabolic panel shows minimally elevated BUN at 36, creatinine at 1.06, which is her baseline. Random glucose was 199, troponin minimally elevated at 0.05. Portable chest x-ray just shows cardiomegaly and AICD present, but otherwise unremarkable. EKG showed sinus rhythm without any ST elevation. There are some T-wave inversions and ST depression in V5, V6 and in lead 2, but when compared to her older EKGs these were present in the older EKG as well from August 2016. IMPRESSION: This is an 83-year-old female here with past medical history of hypertension, coronary artery disease, renal dysfunction, and diabetes, came in with chest pain with minimally elevated troponin at 0.05 and likely due to decreased clearance given her single kidney rather than a real coronary event. ASSESSMENT: 1. Chest pain, rule out acute coronary syndrome. We will get serial cardiac enzymes and get an echocardiogram and consider stress test if okay with stress test lab regarding her single kidney. 2. History of diabetes. We will restart her home Lantus dosage and check the patient on fingersticks with meal and at bedtime. 3. History of renal transplant. We will continue her home immunotherapy. 4. History of hypertension. We will restart metoprolol, hold torsemide until after the stress test. 5. History of congestive heart failure, hold torsemide as mentioned and follow up echocardiogram. 6. DVT prophylaxis with subcu heparin. 7. Code status. Full code [id number]/[facility] #: [id number] MTDD
[2019-03-14] MEDS ORDERED: Dextrose 50% VIAL 50 ml IV PUSH PRN (12:16)
[2019-03-14] MEDS ORDERED: Famotidine TAB* 20 MG PO SCH (13:00)
[2019-03-14] MEDS: Heparin VIAL(*) 5000 UNITS/ML VIAL (FIVE THOUSAND) SUBCUT SCH ×2 (13:05→13:11)
[2019-03-14 13:16] LABS: Troponin I 0.05 ng/mL (<0.04)
[2019-03-14 15:45] LABS: Troponin I 0.05 ng/mL (<0.04)
--- NOTE | 2019-03-14 16:26 | ECHO ---
*[facility]* [place] [address] Fax #: [phone] Transthoracic Echocardiogram Patient: Bhargavi Borjas : 1935 Study Date: 03/14/2019 Age: 83 Gender: F HR: 43 bpm Height: 63 in /160 cm BSA: 1.57 m^2 Weight: 121.7 lb /55.3 kg BMI: 21.6 kg/m^2 *Braider Setter: * Ellie Fernandez [facility] *Referring Physician: * Delonte Simon *Reading Physician: * Yousuf Christensen MD Indications: Chest Pain, unspecified. History: Congestive heart failure. PMH: Cardiomyopathy. Risk factors: Former tobacco use. Hypertension. Diabetes mellitus. Labs, prior tests, procedures, and surgery: ICD system implantation. Renal transplant. Conclusions Summary: - Left ventricle: Systolic function is severely reduced. The estimated ejection fraction is 20-25%. Severe diffuse hypokinesis. - Right ventricle: Pacer wire noted in the right ventricle. Systolic function is moderately reduced. - Left atrium: The atrium is severely dilated. - Mitral valve: There is mild to moderate regurgitation. - Aortic valve: There is no evidence of stenosis. There is no significant regurgitation. - Tricuspid valve: There is moderate-severe regurgitation. - Pericardium, extracardiac: There is no significant pericardial effusion. - Pulmonary arteries: Systolic pressure is severely increased. - Compared to study of 06/25/15, there is little change. Study data: Transthoracic echocardiogram. Procedure: Transthoracic echocardiography was performed. Image quality was good. Complete 2D, spectral Doppler, and color flow Doppler. Location: Bedside. Patient status: Inpatient. Patient room number: 448-01. Rhythm: Normal sinus rhythm with PAC's. Findings Left ventricle: The cavity size is moderately dilated. Wall thickness is normal. Systolic function is severely reduced. The estimated ejection fraction is 20-25%. Severe diffuse hypokinesis. There is no consistent Doppler evidence of clinically significant diastolic dysfunction. Right ventricle: The cavity size is mildly dilated. Pacer wire noted in the right ventricle. Systolic function is moderately reduced. Left atrium: The atrium is severely dilated. Right atrium: The atrium is moderately dilated. Pacer wire noted in right atrium. Mitral valve: The leaflets are mildly thickened. There is no evidence of stenosis. There is mild to moderate regurgitation. Aortic valve: The valve is trileaflet. The leaflets are mildly thickened. There is no evidence of stenosis. There is no significant regurgitation. Tricuspid valve: The leaflets are normal thickness. There is no evidence of stenosis. There is moderate-severe regurgitation. Pulmonic valve: The leaflets are normal thickness. There is no evidence of stenosis. There is trace regurgitation. Aorta: Aortic root: The aortic root is appears normal. Ascending aorta: The ascending aorta is appears normal. Aortic arch: The aortic arch is appears normal. Pericardium: There is no significant pericardial effusion. Pulmonary arteries: The main pulmonary artery is normal-sized. Systolic pressure is severely increased. Systemic veins: Inferior vena cava: The vessel is normal in size. There is (< 50%) respiratory change in the IVC dimension. Measurements Left ventricle Value Ref Aortic valve continued Value Ref FRANCOIS, LAX (H) 6.1 cm 3.8 - 5.2 VTI, S 35.9 cm ----- ESD, LAX (H) 5.7 cm 2.2 - 3.5 Mean grad, S 5.0 mm Hg ----- FS, LAX (L) 6 % 45 Peak grad, S 8.0 mm Hg ----- PW, ED, LAX 0.7 cm 0.6 - 0.9 LVOT/AV, VTI ratio 0.47 ----- FS (L) 6 % 27 - 45 PW, ED 0.7 cm 0.6 - 0.9 Mitral valve Value Ref PW/ID, ED 0.12 Peak E 0.99 m/sec ----- E', lat ivis, TDI (L) 3.2 cm/sec >=10.0 Peak A 0.68 m/sec - ---- E/e', lat ivis, 31 Decel time 250 ms ---- - TDI Peak grad, D 3.9 mm Hg ----- E', med ivis, TDI (L) 3.8 cm/sec >=7.0 Peak E/A ratio 1.5 - ---- E/e', med ivis, 26 MR alias velocity 0.39 m/sec ---- - TDI MR PISA radius 0.2 cm ----- E', avg, TDI 3.5 cm/sec Max MR v 3.98 m/sec ---- - E/e', avg, TDI (H) 28 <=14 ERO, PISA 0.02 cm^2 - ---- MR vol, PISA 3 ml ----- LVOT Value Ref Peak rene, S 0.73 m/sec Pulmonic valve Value Ref VTI, S 17.0 cm Peak v, S 0.72 m/sec ----- Mean grad, S 1 mm Hg Peak grad, S 2.0 mm Hg ----- Ventricular septum Value Ref Tricuspid valve Value Ref IVS, ED 0.6 cm 0.6 - 0.9 TR peak v (H) 3.7 m/sec <=2.8 Peak RV-RA grad, S 55 mm Hg ----- Right ventricle Value Ref FRANCOIS, LAX 4.2 cm Aortic root Value Ref FRANCOIS minor ax, A4C (H) 4.0 cm 1.9 - 3.5 Root diam 2.7 cm <3.8 mid Pressure, S 63 mm Hg Ascending aorta Value Ref AAo AP diam, S 3.0 cm ----- Left atrium Value Ref AP dim, ES (H) 4.40 cm 2.70 - Aortic arch Value Ref 3.80 Arch diam 1.8 cm ----- ML dim, A4C 4.8 cm SI dim, A4C 6.0 cm Decending aorta Value Ref Vol/bsa, ES, 1-p (H) 42 ml/m^2 11 - 40 Ignacio peak rene 0.5 m/sec ----- A4C Vol/bsa, ES, A/L (H) 49 ml/m^2 16 - 34 Pulmonary artery Value Ref Pressure, S 61.0 mm Hg ----- Right atrium Value Ref SI dim, ES 5.3 cm 3.4 - 5.3 Inferior vena cava Value Ref ML dim, ES, A4C (H) 5.1 cm 2.6 - 4.4 Diam 1.8 cm ----- SI dim, ES, A4C 5.3 cm 3.4 - 5.3 Estimated RAP 8 mm Hg Aortic valve Value Ref Ivis diam, ED 1.7 cm Peak v, S 1.45 m/sec Legend: (L) and (H) suyapa values outside specified reference range. Prepared and electronically signed by Yousuf Christensen MD 03/14/2019 16:26
[2019-03-14] MEDS ORDERED: Insulin LISPRO* 1 UNITS UNIT SUBCUT SCH (16:30)
[2019-03-14] MEDS ORDERED: Insulin LISPRO* 1 UNITS UNIT SUBCUT ONE (18:00)
[2019-03-14 18:26] VITALS: BP 127/64
--- NOTE | 2019-03-14 19:41 | CONS ---
CC: Dr. Anselmo Smith; Dr. Tiburcio Edmonds * CARDIOLOGY CONSULTATION: DATE OF CONSULT: 03/14/19 INDICATION FOR CONSULTATION: Chest pain, mildly elevated troponin levels. HISTORY OF PRESENT ILLNESS: The patient is an 83-year-old female, well known to our practice with a history of nonischemic cardiomyopathy, heart failure, biventricular ICD, history of renal transplant 20 years ago, who was admitted to the hospital with chest pain. The patient states that she has been working very hard over the last 3 days to pack up her house. She and her are downsizing from a large farm house. She has been moving bedding, moving boxes. Yesterday afternoon, she started noticing a discomfort on the left rib area. She said it would come and go throughout the day, it would last no more than 5 or 10 seconds and then resolve. It was crescendo-decrescendo discomfort. There was no pattern to it. It was not associated with exertion. The patient states that she went to bed and was unable to fall asleep because of this ongoing discomfort and decided to come to the emergency room. On arrival to the emergency room, her EKG showed biventricular pacing and thus could not be interpreted for ischemia. Her initial troponin level was elevated at 0.05. Her last admission in 2016 did show an elevated troponin level of 0.04. The patient was admitted overnight. Her troponins continued to be minimally elevated at 0.05. They did not significantly change during her hospitalization. The patient was treated with sublingual nitroglycerin without any change in her discomfort initially. In speaking with her this afternoon, she says that she no longer feels this discomfort. She denies any lightheadedness, dizziness, or syncope. She denies any palpitations. She denies any orthopnea. She has been taking her medications appropriately. PAST MEDICAL HISTORY: Significant for chronic back pain, hypertension, mild-to - moderate coronary artery disease, nonischemic cardiomyopathy, pulmonary hypertension. PAST SURGICAL HISTORY: Renal transplant in 1989, laminectomy in 2007, cardiac catheterization in 2015. OUTPATIENT MEDICATIONS: 1. Insulin as directed. 2. Prednisone 2.5 mg daily. 3. Torsemide 5 mg if her weight goes greater than 126 pounds. 4. Metoprolol succinate 12.5 mg a day. 5. Lisinopril 2.5 mg a day. ALLERGIES: To multiple medications including PENICILLIN, BACTRIM, BISOPROLOL, CANDESARTAN, COREG, NIFEDIPINE, PLAVIX, VALSARTAN, SPIRONOLACTONE. FAMILY HISTORY: Not reviewed. SOCIAL HISTORY: She lives with her . Again, they are currently moving to downsizing. She denies tobacco or alcohol use. REVIEW OF SYSTEMS: Negative for fevers and chills. Negative for changes in bowel or bladder habits. Negative for change in her weight. Other 12-point review is unremarkable except for her chest pain. PHYSICAL EXAM: Height is 5 feet 3 inches, weight is 124 pounds, temperature 97.6, heart rate is 61, blood pressure 148/65, respiratory rate is 19, oxygen saturation 99% on room air. Sclerae anicteric. Oropharynx is pink without erythema. Carotids are 2+ without bruits. JVD is normal. Thyroid is normal. Cardiac Exam: S1, S2 with a 1/6 systolic ejection murmur heard best at the apex. PMI is normal. Lungs are clear to auscultation. There is no dullness to percussion. Abdomen is soft, nontender, nondistended with normoactive bowel sounds. Extremities show minimal edema. She has 2+ pulses throughout. The patient is awake, alert, and oriented. She denies any changes in motor function. DIAGNOSTIC STUDIES: Echocardiogram today shows severe LV dysfunction, mild-to- moderate mitral regurgitation, [id number] tricuspid regurgitation with pulmonary hypertension. IMPRESSION AND PLAN: This is an 83-year-old female with a history of nonischemic cardiomyopathy, who was admitted to the hospital with chest pain. In general, I think her chest pain is quite atypical. Her minimal elevation of troponins are flat and not suggestive of ischemic event. At this point, I do not think any medication changes are necessary. I do not think any cardiac testing is necessary. I do not think it is necessary for the patient to undergo a cardiac stress test. I think it is reasonable to discharge the patient home. Follow up with Dr. Edmonds as an outpatient. [id number]/[facility] #: [id number] [facility]ITALBirdie
--- NOTE | 2019-03-15 01:13 | DS ---
CC: Dr. Smith; Dr. Christensen * DISCHARGE SUMMARY: DATE OF ADMISSION: 03/14/19 DATE OF DISCHARGE: 03/14/19 PRIMARY CARE PROVIDER: Dr. Smith. DISCHARGE DIAGNOSIS: Chest pain, atypical, with acute coronary syndrome ruled out, in patient with history of chronically positive troponin in the range of 0.04 to 0.06. SECONDARY DIAGNOSES: 1. History of diabetes, type 1. 2. History of chronic renal disease. 3. Status post renal transplant in 1989. 4. History of congestive heart failure and diuretics with EF less than 20%, status post ICD placement. 5. History of coronary artery disease, status post cardiac catheterization in 2015 with maximal lesion being 60%. 6. History of lumbar laminectomy. MEDICATIONS AT DISCHARGE: Unchanged from admission and include: 1. Torsemide 25 mg daily. 2. Prednisone 2.5 mg daily. 3. Lopressor 12.5 mg every evening. 4. Humalog insulin 3 units subcutaneously daily. 5. Insulin glargine 5 units subcutaneously daily. 6. Imuran 50 mg daily. DIAGNOSTIC STUDIES/LAB DATA: Laboratory data during the hospital stay included troponin of 0.06 and then 0.05. For basic metabolic panel and CBC, please see Dr. Simon's history and physical for details. Transthoracic echocardiogram performed on 03/14/19 showed an EF of 20% to 25% with severe diffuse hypokinesis with [id number] regurgitation of mitral valve and [id number] regurgitation of tricuspid valve and no changes comparing with study from 2016. Portable chest x-ray, impression: "Cardiomegaly, hyperinflation." CONSULTATIONS DURING THE HOSPITAL STAY: Included Dr. Christensen from Cardiology. HOSPITALIZATION COURSE: Bhargavi Borjas is an 83-year-old female with history of insulin-dependent diabetes and kidney transplant who presented complaining of chest pain. The patient stated that she had been in a process of moving from one house to the other and she had been stressed out both physically and emotionally by that process. For full details of the patient's chest pain, please see history and physical. Shortly, the patient had no more episodes of chest pain throughout her observation. She was seen by Dr. Christensen in consultation. Dr. Christensen noted the patient's troponin is clinically elevated and her echocardiogram shows no changes comparing with prior. Dr. Christensen cleared the patient for discharge. The patient is to follow up with Dr. Anselmo Smith in approximately 4 to 7 days. Her medications on discharge are unchanged. PHYSICAL EXAMINATION AT DISCHARGE: Unchanged from admission. DISPOSITION: Discharged to home. CONDITION ON DISCHARGE: Stable. Please note that this is a short summary of the patient's hospital stay. Please refer to further medical records for details. [id number] #: [id number]
[2019-03-15] MEDS ORDERED: Insulin GLARGINE(*) 1 UNITS UNIT SUBCUT SCH (09:00)
== END 2019-03-14 19:00 | disposition home or self-care (01) ==
LOC: ED 02:22 → MEDTELE 06:20
PROVIDERS: ADMIT Internal Medicine; ATTEND Internal Medicine
DX: R07.89 Other chest pain (principal); E10.22 Type 1 diabetes mellitus with diabetic chronic kidney disease; I13.0 Hypertensive heart and chronic kidney disease with heart failure and stage 1 through stage 4 chronic kidney disease, or unspecified chronic kidney disease; Z94.0 Kidney transplant status; Z79.4 Long term (current) use of insulin; I50.9 Heart failure, unspecified; I25.10 Atherosclerotic heart disease of native coronary artery without angina pectoris; Z95.5 Presence of coronary angioplasty implant and graft; Z79.899 Other long term (current) drug therapy; Z87.891 Personal history of nicotine dependence; R94.31 Abnormal electrocardiogram [ECG] [EKG]
CPT/HCPCS: 36415; 71045; 80053; 80061; 83036; 84484; 85025; 85610; 93005; 93306; 99284; A9270-GY; G0378; J7500; J7512

== ENCOUNTER 2022-04-10 19:47 | Inpatient (IN) ==
[2022-04-10] MEDS ORDERED: Morphine 4 MG/ML VIAL (1 ml) IV PRN (20:15)
[2022-04-10] MEDS ORDERED: Morphine 4 MG/ML VIAL (1 ml) IV ONE (20:15)
[2022-04-10] MEDS ORDERED: Ondansetron 4 mg VIAL 2 MG/ML 2 ml VIAL IV ONE (20:45)
[2022-04-10 20:55] LABS: ABS Monocytes 0.5 10^3/ul (0-0.8); ABS Neutrophils 6.3 10^3/ul (1.5-7.7); Eosinophil % 0.6 %; Hematocrit 42 % (35-47); Hemoglobin 13.7 g/dL (12.0-16.0); Lymphocyte % 12.9 %; Mean Corpuscular HGB Conc 33 g/dL (31-36); Mean Corpuscular Hemoglobin 29 pg (27-31); Mean Corpuscular Volume 89 fL (80-97); Mean Platelet Volume 9.2 fL (7.4-10.4); Platelet Count 167 10^3/uL (150-450); Red Blood Count 4.67 10^6 /uL (3.70-4.87); Red Cell Distribution Width 15 % (10-15); White Blood Count 7.8 10^3/uL (3.5-10.8)
[2022-04-10 21:04] LABS: Activated Partial Thrombo Time 32.4 seconds (26.0-38.0); INR 1.24 (0.89-1.11)
[2022-04-10 21:14] LABS: Albumin/Globulin Ratio 1.2 (1-3); Calcium 9.3 mg/dL (8.6-10.3); Globulin 3.4 g/dL (2-4); Potassium 4.5 mmol/L (3.5-5.0); Total Protein 7.4 g/dL (6.4-8.9); eGFR CKD-EPI 45.6 (>60)
[2022-04-10] MEDS ORDERED: Ondansetron 4 mg VIAL 2 MG/ML 2 ml VIAL IV PRN (22:59)
[2022-04-11 06:58] LABS: ABS Basophils 0.1 10^3/ul (0-0.2); ABS Eosinophils 0.2 10^3/ul (0-0.6); ABS Lymphocytes 1.1 10^3/ul (1.0-4.8); ABS Monocytes 0.7 10^3/ul (0-0.8); ABS Neutrophils 9.5 10^3/ul (1.5-7.7); Eosinophil % 1.6 %; Hematocrit 41 % (35-47); Hemoglobin 13.4 g/dL (12.0-16.0); Lymphocyte % 9.5 %; Mean Corpuscular HGB Conc 33 g/dL (31-36); Mean Corpuscular Hemoglobin 30 pg (27-31); Mean Corpuscular Volume 90 fL (80-97); Platelet Count 157 10^3/uL (150-450); Red Blood Count 4.53 10^6 /uL (3.70-4.87); Red Cell Distribution Width 16 % (10-15); White Blood Count 11.6 10^3/uL (3.5-10.8)
[2022-04-11 07:24] LABS: Magnesium 2.1 mg/dL (1.9-2.7); eGFR CKD-EPI 40.9 (>60)
[2022-04-11] MEDS ORDERED: Heparin DRIP 25,000 UNITS BAG 25,000 UNITS/500 ML BAG IV SCH (13:15)
[2022-04-11 13:34] LABS: ABS Basophils 0.1 10^3/ul (0-0.2); ABS Eosinophils 0.2 10^3/ul (0-0.6); ABS Lymphocytes 2.1 10^3/ul (1.0-4.8); ABS Neutrophils 9.6 10^3/ul (1.5-7.7); Eosinophil % 1.4 %; Hematocrit 43 % (35-47); Hemoglobin 13.8 g/dL (12.0-16.0); Lymphocyte % 16.2 %; Mean Corpuscular HGB Conc 32 g/dL (31-36); Mean Corpuscular Hemoglobin 29 pg (27-31); Mean Corpuscular Volume 91 fL (80-97); Mean Platelet Volume 9.5 fL (7.4-10.4); Platelet Count 171 10^3/uL (150-450); Red Blood Count 4.76 10^6 /uL (3.70-4.87); Red Cell Distribution Width 16 % (10-15); White Blood Count 12.9 10^3/uL (3.5-10.8)
[2022-04-11 14:17] LABS: eGFR CKD-EPI 29.3 (>60)
[2022-04-11] MEDS ORDERED: Heparin 5000 UNITS/ML 1 mL VIAL ONE (14:18)
[2022-04-11] MEDS ORDERED: Pantoprazole VIAL 40 MG VIAL IV ONE (14:21)
[2022-04-11] MEDS ORDERED: Pantoprazole VIAL 40 MG VIAL ONE (14:21)
[2022-04-11] MEDS ORDERED: Morphine 2 MG/ML SYRINGE IV PRN (14:32)
[2022-04-11] MEDS: Acetaminophen IV 1 GM/100ML 1,000 MG/100 ML BAG IV PRN (14:32)
[2022-04-11] MEDS ORDERED: Metoclopramide 5 MG/ML VIAL (10 mg) IV PRN (14:33)
[2022-04-11] MEDS ORDERED: Dextrose 50% Syringe 50 ml 25 GM/50 ML SYRINGE IV PUSH PRN (14:36)
[2022-04-11] MEDS ORDERED: Lactated Ringers 1000 ml BAG 500 ML IV ONE (14:43)
[2022-04-12] MEDS ORDERED: Famotidine SUSP ORALSYR 8 MG/ML PO PRN (06:00)
[2022-04-12] MEDS: Acetaminophen IV 1 GM/100ML 1,000 MG/100 ML BAG IV PRN ×3 (06:31→21:20)
[2022-04-12] MEDS ORDERED: Morphine 2 MG/ML SYRINGE IV PRN (08:35)
[2022-04-12 09:44] LABS: ABS Basophils 0.1 10^3/ul (0-0.2); ABS Eosinophils 0.2 10^3/ul (0-0.6); ABS Lymphocytes 1.1 10^3/ul (1.0-4.8); ABS Monocytes 0.8 10^3/ul (0-0.8); ABS Neutrophils 10.3 10^3/ul (1.5-7.7); Eosinophil % 1.7 %; Hematocrit 38 % (35-47); Hemoglobin 12.4 g/dL (12.0-16.0); Mean Corpuscular HGB Conc 32 g/dL (31-36); Mean Corpuscular Hemoglobin 29 pg (27-31); Mean Corpuscular Volume 90 fL (80-97); Mean Platelet Volume 9.3 fL (7.4-10.4); Platelet Count 146 10^3/uL (150-450); Red Blood Count 4.28 10^6 /uL (3.70-4.87); Red Cell Distribution Width 16 % (10-15); White Blood Count 12.6 10^3/uL (3.5-10.8)
[2022-04-12 10:21] LABS: Calcium 8.5 mg/dL (8.6-10.3); Potassium 4.8 mmol/L (3.5-5.0); eGFR CKD-EPI 22.3 (>60)
[2022-04-12] MEDS ORDERED: Lactated Ringers 1000 ml BAG 1,000 ML IV ONE (12:30)
[2022-04-12 15:13] LABS: Urine Appearance Cloudy; Urine Bilirubin Negative (Negative); Urine Blood Negative (Negative); Urine Color Yellow; Urine Glucose Negative (Negative); Urine Ketones Negative (Negative); Urine Nitrite Negative (Negative); Urine Protein 1+(30 mg/dL) (Negative); Urine Specific Gravity 1.015 (1.002-1.030); Urine Urobilinogen Negative (Negative)
[2022-04-12 15:15] LABS: Urine Bacteria Absent (Absent); Urine Red Blood Cell Trace(0-2/hpf) (Absent); Urine Squamous Epithelial Cell Present (Absent); Urine White Blood Cell Trace(0-5/hpf) (Absent)
[2022-04-12 17:56] LABS: Calcium 8.7 mg/dL (8.6-10.3); eGFR CKD-EPI 21.1 (>60)
[2022-04-13 06:05] LABS: ABS Eosinophils 0.2 10^3/ul (0-0.6); ABS Lymphocytes 1.2 10^3/ul (1.0-4.8); ABS Monocytes 0.9 10^3/ul (0-0.8); ABS Neutrophils 6.5 10^3/ul (1.5-7.7); Eosinophil % 2.8 %; Hematocrit 39 % (35-47); Hemoglobin 12.5 g/dL (12.0-16.0); Lymphocyte % 13.7 %; Mean Corpuscular HGB Conc 33 g/dL (31-36); Mean Corpuscular Hemoglobin 29 pg (27-31); Mean Corpuscular Volume 89 fL (80-97); Mean Platelet Volume 9.2 fL (7.4-10.4); Platelet Count 143 10^3/uL (150-450); Red Cell Distribution Width 15 % (10-15); White Blood Count 8.9 10^3/uL (3.5-10.8)
[2022-04-13 06:36] LABS: Albumin/Globulin Ratio 1.1 (1-3); Calcium 8.5 mg/dL (8.6-10.3); Globulin 2.8 g/dL (2-4); Magnesium 2.4 mg/dL (1.9-2.7); Potassium 4.8 mmol/L (3.5-5.0); Total Bilirubin 1.1 mg/dL (0.2-1.0); Total Protein 5.8 g/dL (6.4-8.9); eGFR CKD-EPI 27.3 (>60)
[2022-04-13] MEDS: Acetaminophen IV 1 GM/100ML 1,000 MG/100 ML BAG IV PRN (10:44)
[2022-04-13] MEDS ORDERED: Dexamethasone IV 4 MG/ML VIAL 1 ml VIAL ONE (14:14)
[2022-04-13] MEDS ORDERED: Ondansetron 4 mg VIAL 2 MG/ML 2 ml VIAL ONE (14:14)
[2022-04-13] MEDS ORDERED: Etomidate 20 mg/10 ml 2 MG/ML 10 ml VIAL ONE (14:14)
[2022-04-13] MEDS ORDERED: fentaNYL 100 mcg/2 ml 50 MCG/ML VIAL ONE (14:14)
[2022-04-13] MEDS ORDERED: Lidocaine 2% PF 5 ML VIAL ONE (14:14)
[2022-04-13] MEDS ORDERED: Rocuronium 50 mg VIAL 10 mg/ml 5 ml VIAL (50 mg) ONE (14:14)
[2022-04-13] MEDS ORDERED: Phenylephrine IV 10 MG/ML 1 ml VIAL ONE (14:14)
[2022-04-13] MEDS ORDERED: Vancomycin 750 MG in NS 0.9% 250 ML IVPB ONE (14:30)
[2022-04-13] MEDS ORDERED: ceFAZolin 2 GM in NS PREMIX 2 GM/100 ML BAG IVPB ONE (14:36)
[2022-04-13] MEDS ORDERED: Bupivacaine 0.25% EPI 200,000 30 ML SDV ONE (15:30)
[2022-04-13] MEDS ORDERED: HYDROmorphone 0.5 MG/0.5 ML SYRINGE ONE (15:35)
[2022-04-13] MEDS ORDERED: Naloxone 0.4 mg VIAL 0.4 mg/ml 1 ml VIAL IV PRN (16:21)
[2022-04-13] MEDS ORDERED: HYDROmorphone 1 MG/1 ML SYRINGE IV PRN (16:21)
[2022-04-13] MEDS: ceFAZolin 1 GM X 3 DOSES POST-OP Q8H (AddVan) IVPB SCH (23:10)
[2022-04-14 06:41] LABS: ABS Lymphocytes 0.3 10^3/ul (1.0-4.8); ABS Monocytes 0.6 10^3/ul (0-0.8); ABS Neutrophils 8.6 10^3/ul (1.5-7.7); Eosinophil % 0.1 %; Hematocrit 40 % (35-47); Hemoglobin 12.8 g/dL (12.0-16.0); Mean Corpuscular HGB Conc 32 g/dL (31-36); Mean Corpuscular Hemoglobin 29 pg (27-31); Mean Corpuscular Volume 91 fL (80-97); Mean Platelet Volume 8.9 fL (7.4-10.4); Platelet Count 171 10^3/uL (150-450); Red Blood Count 4.34 10^6 /uL (3.70-4.87); Red Cell Distribution Width 16 % (10-15); White Blood Count 9.5 10^3/uL (3.5-10.8)
[2022-04-14 07:17] LABS: Calcium 8.7 mg/dL (8.6-10.3)
[2022-04-14 07:18] LABS: Potassium 5.5 mmol/L (3.5-5.0)
[2022-04-14] MEDS: ceFAZolin 1 GM X 3 DOSES POST-OP Q8H (AddVan) IVPB SCH ×2 (08:11→16:56)
[2022-04-14] MEDS ORDERED: Insulin GLARGINE 100 un/ml 10 ml VIAL SUBCUT SCH ×2 (09:00→21:00)
[2022-04-14] MEDS ORDERED: Calcium Carb (TUMS) 500 mg CHEW TAB PO PRN (09:39)
[2022-04-15 05:56] LABS: ABS Monocytes 1.1 10^3/ul (0-0.8); ABS Neutrophils 6.7 10^3/ul (1.5-7.7); Eosinophil % 0.1 %; Hematocrit 35 % (35-47); Hemoglobin 11.5 g/dL (12.0-16.0); Lymphocyte % 11.2 %; Mean Corpuscular HGB Conc 33 g/dL (31-36); Mean Corpuscular Hemoglobin 30 pg (27-31); Mean Corpuscular Volume 90 fL (80-97); Mean Platelet Volume 8.7 fL (7.4-10.4); Platelet Count 173 10^3/uL (150-450); Red Blood Count 3.85 10^6 /uL (3.70-4.87); Red Cell Distribution Width 15 % (10-15); White Blood Count 8.9 10^3/uL (3.5-10.8)
[2022-04-15 06:12] LABS: Calcium 8.5 mg/dL (8.6-10.3); Potassium 4.9 mmol/L (3.5-5.0); eGFR CKD-EPI 39.4 (>60)
[2022-04-15 15:49] VITALS: BP 105/58
== END 2022-04-15 15:54 | DRG 521 ==
LOC: ED 19:47 → EDHOLD 22:59 → SUATTDRO 22:59 → EDHOLD 04-11 07:47 → SSU 04-11 08:11
PROVIDERS: ADMIT Student in an Organized Health Care Education/Training Program; ATTEND Internal Medicine

== ENCOUNTER 2022-04-15 15:55 | Inpatient (IN) ==
[2022-04-15] MEDS ORDERED: Senna TAB 8.6 mg TAB PO PRN (20:45)
[2022-04-15] MEDS ORDERED: Magnesium Hydroxide LIQ 30 ML UDC PO PRN (20:45)
[2022-04-15] MEDS ORDERED: Dextrose 50% Syringe 50 ml 25 GM/50 ML SYRINGE IV PUSH PRN (20:57)
[2022-04-15] MEDS: Insulin GLARGINE 100 un/ml 10 ml VIAL SUBCUT SCH (21:32)
[2022-04-16] MEDS: Insulin GLARGINE 100 un/ml 10 ml VIAL SUBCUT SCH (20:12)
[2022-04-17 06:59] LABS: ABS Eosinophils 0.3 10^3/ul (0-0.6); ABS Lymphocytes 1.4 10^3/ul (1.0-4.8); ABS Monocytes 0.9 10^3/ul (0-0.8); ABS Neutrophils 4.8 10^3/ul (1.5-7.7); Eosinophil % 4.2 %; Hematocrit 35 % (35-47); Hemoglobin 11.3 g/dL (12.0-16.0); Lymphocyte % 18.8 %; Mean Corpuscular HGB Conc 33 g/dL (31-36); Mean Corpuscular Hemoglobin 29 pg (27-31); Mean Corpuscular Volume 90 fL (80-97); Mean Platelet Volume 8.4 fL (7.4-10.4); Platelet Count 177 10^3/uL (150-450); Red Blood Count 3.86 10^6 /uL (3.70-4.87); Red Cell Distribution Width 15 % (10-15); White Blood Count 7.5 10^3/uL (3.5-10.8)
[2022-04-17 07:49] LABS: Albumin 2.8 g/dL (3.2-5.2); Calcium 8.3 mg/dL (8.6-10.3); Globulin 2.7 g/dL (2-4); Potassium 4.2 mmol/L (3.5-5.0); Total Bilirubin 0.8 mg/dL (0.2-1.0); Total Protein 5.5 g/dL (6.4-8.9); eGFR CKD-EPI 48.1 (>60)
[2022-04-17] MEDS: Insulin GLARGINE 100 un/ml 10 ml VIAL SUBCUT SCH (22:16)
[2022-04-18] MEDS: Insulin GLARGINE 100 un/ml 10 ml VIAL SUBCUT SCH (20:13)
[2022-04-19] MEDS: Insulin GLARGINE 100 un/ml 10 ml VIAL SUBCUT SCH (21:30)
[2022-04-20] MEDS: Insulin GLARGINE 100 un/ml 10 ml VIAL SUBCUT SCH (22:55)
[2022-04-21] MEDS: Insulin GLARGINE 100 un/ml 10 ml VIAL SUBCUT SCH (20:28)
[2022-04-22] MEDS: Insulin GLARGINE 100 un/ml 10 ml VIAL SUBCUT SCH (20:48)
[2022-04-23] MEDS: Insulin GLARGINE 100 un/ml 10 ml VIAL SUBCUT SCH (20:30)
[2022-04-24 06:27] VITALS: BP 123/59
[2022-04-24 07:20] LABS: ABS Basophils 0.1 10^3/ul (0-0.2); ABS Eosinophils 0.3 10^3/ul (0-0.6); ABS Lymphocytes 1.4 10^3/ul (1.0-4.8); ABS Monocytes 1.1 10^3/ul (0-0.8); ABS Neutrophils 5.3 10^3/ul (1.5-7.7); Eosinophil % 3.6 %; Hematocrit 33 % (35-47); Lymphocyte % 16.6 %; Mean Corpuscular HGB Conc 33 g/dL (31-36); Mean Corpuscular Hemoglobin 30 pg (27-31); Mean Corpuscular Volume 90 fL (80-97); Mean Platelet Volume 7.4 fL (7.4-10.4); Platelet Count 286 10^3/uL (150-450); Red Cell Distribution Width 16 % (10-15); White Blood Count 8.2 10^3/uL (3.5-10.8)
[2022-04-24 07:51] LABS: Albumin/Globulin Ratio 1.1 (1-3); Calcium 8.8 mg/dL (8.6-10.3); Globulin 2.7 g/dL (2-4); Total Bilirubin 1.1 mg/dL (0.2-1.0); Total Protein 5.7 g/dL (6.4-8.9); eGFR CKD-EPI 55.2 (>60)
== END 2022-04-24 14:20 | disposition home health service (06) | DRG 560 ==
LOC: PMRU 15:55
PROVIDERS: ADMIT Physical Medicine & Rehabilitation; ATTEND Physical Medicine & Rehabilitation

== ENCOUNTER 2023-02-04 22:03 | Observation (INO) ==
[2023-02-04 22:39] LABS: ABS Basophils 0.1 10^3/uL (0.0-0.1); ABS Eosinophils 0.1 10^3/uL (0.0-0.5); ABS Lymphocytes 1.5 10^3/uL (1.0-4.8); ABS Monocytes 0.8 10^3/uL (0.0-0.9); ABS Nucleated RBC 0.01 10^3/ul; Eosinophil % 1.2 %; Hematocrit 40.2 % (35-45); Hemoglobin 13.8 g/dL (11.5-14.3); Lymphocyte % 19.8 %; Mean Corpuscular Hemoglobin 29.8 pg (27-33); Mean Corpuscular Hgb Conc 34.3 g/dL (31-36); Mean Corpuscular Volume 86.8 fL (80-97); Mean Platelet Volume 9.4 fL (7.5-11.2); Nucleated Red Blood Cells % 0.1 /100 WBC (0.0-0.4); Platelet Count 173 10^3/uL (150-450); Red Blood Count 4.63 10^6/uL (3.63-4.92); Red Cell Distribution Width 16.9 % (12-17); White Blood Count 7.4 10^3/uL (3.8-11.8)
[2023-02-04 22:43] LABS: INR 1.79 (0.83-1.13)
[2023-02-04 22:54] LABS: Magnesium 2.2 mg/dL (1.9-2.7)
[2023-02-04 22:55] LABS: Albumin 3.9 g/dL (3.2-5.2); Albumin/Globulin Ratio 1.2 (1-3); Calcium 9.1 mg/dL (8.6-10.3); Creatinine, Serum 1.31 mg/dL (0.51-0.95); Globulin 3.3 g/dL (2-4); Potassium 4.1 mmol/L (3.5-5.0); Total Bilirubin 0.9 mg/dL (0.2-1.0); Total Protein 7.2 g/dL (6.4-8.9); eGFR CKD-EPI 39.2 (>60)
[2023-02-04] MEDS ORDERED: NS 0.9% 1000 ml BAG 250 ML IV ONE (23:01)
[2023-02-04] MEDS ORDERED: Iodixanol (CONTRAST) 320 MG/ML 100 ML SDV IV ONE (23:30)
[2023-02-05] MEDS ORDERED: cefTRIAXone 1 gm/50 mL D5W 1 GM/50 ML BAG IV ONE (02:02)
[2023-02-05] MEDS ORDERED: Heparin DRIP 25,000 UNITS BAG 25,000 UNITS/500 ML BAG IV SCH (02:15)
[2023-02-05] MEDS ORDERED: Heparin 5000 UNITS/ML 1 mL VIAL IV SCH (03:00)
[2023-02-05 03:03] LABS: ABS Eosinophils 0.1 10^3/uL (0.0-0.5); ABS Lymphocytes 1.5 10^3/uL (1.0-4.8); ABS Monocytes 0.7 10^3/uL (0.0-0.9); ABS Neutrophils 4.3 10^3/uL (1.5-7.6); ABS Nucleated RBC 0.01 10^3/ul; Eosinophil % 1.4 %; Hematocrit 39.1 % (35-45); Hemoglobin 13.2 g/dL (11.5-14.3); Lymphocyte % 22.9 %; Mean Corpuscular Hemoglobin 29.1 pg (27-33); Mean Corpuscular Hgb Conc 33.7 g/dL (31-36); Mean Corpuscular Volume 86.4 fL (80-97); Mean Platelet Volume 9.6 fL (7.5-11.2); Nucleated Red Blood Cells % 0.1 /100 WBC (0.0-0.4); Platelet Count 168 10^3/uL (150-450); Red Blood Count 4.53 10^6/uL (3.63-4.92); Red Cell Distribution Width 16.8 % (12-17); White Blood Count 6.6 10^3/uL (3.8-11.8)
[2023-02-05 03:10] LABS: Activated Partial Thrombo Time 33.4 seconds (26.0-38.0)
[2023-02-05 03:18] LABS: Creatinine, Serum 1.21 mg/dL (0.51-0.95); eGFR CKD-EPI 43.1 (>60)
[2023-02-05] MEDS ORDERED: Furosemide 20 mg/2 ml IV VIAL IV SLOW PU ONE (03:40)
[2023-02-05] MEDS ORDERED: Bumetanide IV 0.25 MG/ML 4 ml VIAL (1 mg) IV SLOW PU ONE (03:57)
[2023-02-05] MEDS ORDERED: Dextrose 50% Syringe 50 ml 25 GM/50 ML SYRINGE IV PUSH PRN (04:12)
[2023-02-05 04:22] LABS: C Reactive Protein 1.57 mg/L (<8.01)
[2023-02-05] MEDS ORDERED: Carboxymethylcellulose/Glyceri 10 ML OPHTH.GEL lubricant eye gel BOTH EYES PRN (06:40)
[2023-02-05] MEDS ORDERED: Magnesium Hydroxide LIQ 30 ML UDC PO PRN (08:44)
[2023-02-05 09:55] LABS: INR 1.63 (0.83-1.13)
[2023-02-05 10:48] LABS: Calcium 9.3 mg/dL (8.6-10.3); Creatinine, Serum 1.12 mg/dL (0.51-0.95); Magnesium 2.1 mg/dL (1.9-2.7); Potassium 3.8 mmol/L (3.5-5.0); eGFR CKD-EPI 47.3 (>60)
[2023-02-05] MEDS: Polyethylene Glycol 3350 17 GM PACKET PO SCH (11:07)
[2023-02-05] MEDS ORDERED: Insulin GLARGINE 100 un/ml 10 ml VIAL SUBCUT SCH (21:00)
[2023-02-06 08:44] LABS: ABS Basophils 0.1 10^3/uL (0.0-0.1); ABS Eosinophils 0.2 10^3/uL (0.0-0.5); ABS Lymphocytes 1.7 10^3/uL (1.0-4.8); ABS Monocytes 0.7 10^3/uL (0.0-0.9); ABS Neutrophils 3.6 10^3/uL (1.5-7.6); ABS Nucleated RBC 0.01 10^3/ul; Eosinophil % 2.8 %; Hemoglobin 13.4 g/dL (11.5-14.3); Lymphocyte % 27.7 %; Mean Corpuscular Hemoglobin 28.9 pg (27-33); Mean Corpuscular Hgb Conc 33.6 g/dL (31-36); Mean Platelet Volume 9.3 fL (7.5-11.2); Nucleated Red Blood Cells % 0.1 /100 WBC (0.0-0.4); Platelet Count 175 10^3/uL (150-450); Red Blood Count 4.65 10^6/uL (3.63-4.92); Red Cell Distribution Width 16.8 % (12-17); White Blood Count 6.3 10^3/uL (3.8-11.8)
[2023-02-06 09:00] LABS: Calcium 9.1 mg/dL (8.6-10.3); Creatinine, Serum 1.08 mg/dL (0.51-0.95); Magnesium 2.2 mg/dL (1.9-2.7); Potassium 3.8 mmol/L (3.5-5.0); eGFR CKD-EPI 49.4 (>60)
[2023-02-06] MEDS ORDERED: Enoxaparin 60 MG/0.6 ML SYR SUBCUT SCH (09:00)
[2023-02-06 09:36] VITALS: BP 110/70
[2023-02-06] MEDS: Polyethylene Glycol 3350 17 GM PACKET PO SCH (09:53)
[2023-02-06 10:42] LABS: INR 1.23 (0.83-1.13)
[2023-02-06] MEDS ORDERED: Enoxaparin 80 MG/0.8 ML SYR SUBCUT ONE (12:03)
== END 2023-02-06 13:50 | disposition home or self-care (01) ==
LOC: EDHOLD 22:03 → ED 22:03 → SUATTDRO 02-05 02:28 → MEDTELE 02-05 16:24
PROVIDERS: ADMIT Internal Medicine; ATTEND Hospitalist